=== PATIENT | female | born 1950 | race Caucasian/White ===

== ENCOUNTER 2018-09-22 21:08 | Inpatient (IN) ==
[2018-09-23] MEDS ORDERED: Naloxone 0.4 MG/ML INJ IVP PRN (03:40)
[2018-09-23] MEDS ORDERED: *HR* Dextrose 50 % in Water (Syg) 50 ML SYRINGE IVP PRN (03:43)
[2018-09-23] MEDS ORDERED: D5% in Water 1,000 ML IVC PRN (03:43)
[2018-09-23] MEDS ORDERED: Dextrose Gel 15 GM/37.5 ML TUBE PO PRN ×2 (03:43)
[2018-09-23] MEDS ORDERED: *HR* Heparin 5,000 UNIT/ML VIAL IVP PRN ×2 (03:44)
[2018-09-23] MEDS ORDERED: *HR* Heparin 5,000 UNIT/ML VIAL IVP ONE (03:44)
[2018-09-23] MEDS ORDERED: Heparin 25,000 UNIT/250 ML D5W 25,000 UNIT/250 ML IV.SOLN IVC SCH (03:45)
[2018-09-23 05:19] LABS: Hematocrit 34.5 % (35.3-44.9); Mean Corpuscular HGB Conc 31.9 g/dL (31.6-35.5); Mean Corpuscular Hemoglobin 27.5 pg (28.0-33.3); Mean Corpuscular Volume 86.3 fL (83.0-100.0); Mean Platelet Volume 11.3 fL (9.4-12.4); Platelet Count 241 K/mcL (140-400); Red Cell Distribution Width 13.3 % (11.5-14.5); White Blood Count 14.3 K/mcL (4.3-11.1)
[2018-09-23 05:41] LABS: Calcium 8.4 mg/dL (8.6-10.3); Magnesium 1.6 mg/dL (1.6-2.6); Phosphorous 4.1 mg/dL (2.7-4.5); Potassium 3.6 mEq/L (3.5-5.1)
[2018-09-23 05:45] LABS: Troponin I 0.11 ng/mL (< 0.04)
[2018-09-23] MEDS ORDERED: Insulin LISPRO 300 UNITS/3 ML VIAL SQ SCH (06:00)
--- NOTE | 2018-09-23 06:36 | Internal Med History&Physical ---
Date of Encounter: 09/23/18 Time of Encounter: 03:45 Internal Medicine - H&P: HPI Chief complaint: Acute hypoxic respiratory failure Admitted From: Emergency Dept History of present illness: Ms. Buck is a 68 year old female Patient presented to [facility] on 09/20 and was admitted for hyperglycemia and hypertension. She was treated, and admitted to the hospital for further management. She improved and was given insulin, IV fluids and her blood pressure was controlled with her home dose of atenolol. She was also found to have a UTI, cultures grew out MRSA. She was started on Septra DS for this. On the night of 09/22, a rapid response was called to her room as the patient was having difficulty breathing, oxygen sats were noted to be in the 70% range, and she was again hypertensive. Chest x-ray revealed edema, she was given IV lasix, labe tolol for blood pressure. Labs revealed elevated D-dimer, glucose and BNP. She was started on heparin drip, BiPAP, and the patient was transferred to [facility] for further management. Upon my evaluation, patient is resting comfortably in the hospital bed in no acute distress. She denies chest pain, abdominal pain , nausea, vomiting, diarrhea and constipation. She is wearing the BiPAP, and has had 1500cc of urine out thus far. She is a full code. Past Med Surg Social Fam HX - Past Medical History Medical history: diabetes, GERD, hyperlipidemia, hypertension Additional medical history: H.pylori, gastritits, dyspepsia, leg cramps, depression Psychiatric history: anxiety, depression, prior suicide attempt, previous psychiatric hospitalization - Past Surgical History Surgical History: cholecystectomy, hysterectomy Additional surgical history: Colonoscopy 2012 - Social History Smoking Status: Never smoker Smokeless Tobacco Status: No Alcohol use: none Drug use: none Internal Medicine - H&P: Meds Insulin Glargine,Hum.rec.anlog [Lantus Solostar] 15 unit SQ TID 11/28/14 [History] Lisinopril [Zestril] 20 mg PO DAILY #0 11/28/14 [History] Aspirin 81 mg PO DAILY 06/26/16 [History] Ferrous Sulfate [Iron] 325 mg PO DAILY 06/26/16 [History] Gabapentin [Neurontin] 300 mg PO TID 06/26/16 [History] Gemfibrozil [Lopid] 600 mg PO BID 06/26/16 [History] Paroxetine HCl [Paxil] 40 mg PO DAILY 06/26/16 [History] Trazodone HCl 100 mg PO HS 06/26/16 [History] Atenolol 100 mg PO DAILY 05/22/18 [History] Cholecalciferol (Vitamin D3) [Vitamin D] 5,000 unit PO DAILY 05/22/18 [History] glyBURIDE [GlyBURIDE] 5 mg PO DAILY 05/22/18 [History] risperiDONE [RisperDAL] 4 mg PO HS 05/22/18 [History] Meclizine [Antivert] 25 mg PO DAILY PRN 09/20/18 [History] Meloxicam [Mobic] 15 mg PO DAILY 09/20/18 [History] Omeprazole [PriLOSEC] 20 mg PO DAILY 09/20/18 [History] Allergy/AdvReac Type Severity Reaction Status Date / Time iodine Allergy Hives Verified 12/26/16 16:16 All Systems PM: A 10-system review of systems was performed and is negative for pertinent findings except as documented above in the HPI. - Constitutional Vitals: Temp Pulse Resp BP Pulse Ox 98.6 F 70 17 147/75 98 09/23/18 03:41 09/23/18 03:41 09/23/18 03:46 09/23/18 03:41 09/23/18 03:46 General appearance: Present: cooperative, A&O X 3, pleasant, no acute distress, answers questions appropriately Exam: - - Head Head exam: Present: normal inspection Additional comments: BiPAP mask applied - Eye Eye exam: Present: EOMI, normal appearance - Respiratory Respiratory exam: Present: rales. Absent: accessory muscle use, decreased breath sounds, CTAB, respiratory distress, rhonchi, wheezes - Cardiovascular Cardiovascular exam: Present: RRR. Absent: diastolic murmur, systolic murmur - GI/Abdominal GI/Abdominal exam: Present: normal bowel sounds, soft. Absent: tenderness - Extremities Exam Extremities exam: Present: pedal edema, warm, radial pulses palpable and symmetrical. Absent: calf tenderness, tenderness - Neurological Exam Neurological exam: Present: no focal deficits, strengths equal and symetr throughout. Absent: motor sensory deficit, facial droop, speech deficit - Skin Skin exam: Present: dry, normal color, warm Internal Med - H&P Results - Labs CBC & Chem 7: 09/23/18 05:08 09/23/18 05:08 Labs: Short CBC 09/23/18 Range/Units 05:08 WBC 14.3 H (4.3-11.1) K/mcL Hgb 11.0 L (11.5-15.4) g/dL Hct 34.5 L (35.3-44.9) % Plt Count 241 (140-400) K/mcL BMP 09/23/18 05:08 Sodium 135 L Potassium 3.6 Chloride 103 Carbon Dioxide 22 L BUN 21 Creatinine 1.53 H Glucose 259 H Calcium 8.4 L Cardiac Enzymes 09/23/18 Range/Units 05:08 Troponin I 0.11 H* (< 0.04) ng/mL - Assessment and Plan (1) Acute respiratory failure with hypoxia Current Visit: Yes Status: Acute Assessment and plan: Chest x-ray demonstrated findings consistent with CHF with interstitial edema and probable small effusion. Patient did receive 2 L of IV fluids in the emergency department prior to being admitted at [facility]. She has had good response to the IV Lasix. Patient also had elevated d-dimer, cannot rule out pulmonary embolism as VQ scan not available at [facility]. Patient now on BiPAP, tolerating well. Echocardiogram in the morning VQ scan in the morning Continue heparin drip Continue BiPAP Strict I's and O's Daily weights (2) Elevated d-dimer Current Visit: Yes Status: Acute Assessment and plan: Unclear etiology, patient became short of breath at [facility], and found to have elevated D-dimer. Started on heparin drip at [facility]. CTA not possible due to patient's allergy to iodine which is a component of the CT contrast. Continue heparin drip VQ scan in the morning. Lower extremity Doppler (3) Acute kidney injury Current Visit: Yes Status: Acute Assessment and plan: Elevated creatinine when initially presented to [facility] ER at 1.64. Did improve while inpatient to 1.25, however now increasing again to 1.53. Avoiding fluids in setting of pulmonary edema, Also received lasix at [facility] prior to arrival. Patient has had robust urine output. Continue to monitor Continue gentle diuresis Monitor urine output Daily weights (4) Hypertensive urgency Current Visit: Yes Status: Acute Assessment and plan: Improved after 10 mg of labetalol given at [facility]. Continue to monitor Hydralazine as needed (5) Elevated troponin Current Visit: Yes Status: Acute Assessment and plan: Troponin was undetectable at [facility], but upon arrival repeat troponin was 0.11. Patient denies chest pain. EKG was ordered, was sinus rhythm with no ischemic changes. She is on heparin drip Continue heparin drip Echocardiogram Continue to trend troponin (6) DM type 2 (diabetes mellitus, type 2) Current Visit: No Status: Acute Assessment and plan: Patient is an insulin dependent diabetic Monitor sugars ACHS Diabetic diet Low dose insulin sliding scale as needed Hold home meds. Qualifiers: Diabetes mellitus usp insulin use: with middle or intermediate school principal use Diabetes charo litus complication status: with hyperglycemia Qualified Code(s): E11.65 - Type 2 diabetes mellitus with hyperglycemia; Z79.4 - skilled nursing (current) use of insulin (7) Urinary tract infection Current Visit: No Status: Acute Assessment and plan: Patient was started on a treatment for UTI at [facility], Ro PERES. Grew out MRSA. Patient has worsening renal function, will switch to Vanco IV, renally dosed. Start Vanco, pharmacy to dose. Qualifiers: Urinary tract infection type: acute cystitis Hematuria presence: without hematuria Qualified Code(s): N30.00 - Acute cystitis without hematuria (8) DVT prophylaxis Current Visit: Yes Status: Acute Assessment and plan: Continue heparin drip - Time Spent With Patient Total time spent is greater than 50% in coordination of care (as documented) at patient's floor/unit and/or counseling patient: Greater than 35 minutes
[2018-09-23] MEDS: Insulin LISPRO 300 UNITS/3 ML VIAL SQ SCH ×4 (08:20→20:32)
[2018-09-23] MEDS ORDERED: Furosemide 20 MG/2 ML VIAL IVP SCH (09:00)
[2018-09-23] MEDS ORDERED: Aminoglycoside Consult 1 EACH MC ONE (09:50)
--- NOTE | 2018-09-23 10:26 | Cardiology Consult Note ---
<Christine Castro - Last Filed: 09/23/18 10:22> Date of Encounter: 09/23/18 Time of Encounter: 09:45 Assessment and Plan (1) CHF (congestive heart failure) Current Visit: Yes Status: Acute Per cardiology: -Reported sudden onset of shortness of breath, respiratory failure. -Was given IV lasix, placed on bipap and transferred to [facility]. -Chest x-ray with CHF, interstitial edema and probable small effusions. -Today, patient reports symptoms improved, however still on O2 at 5LPM per nasal cannula, not normally on O2 during the day at home. -On IV lasix, currently net negative ~2.5L. -TTE pending. -TTE 08/2017 with LVEF 60%, mild concentric LVH, mild diastolic dysfunction, mild AR, small pericardial effusion no evidence of tamponade, small PFO with left to right shunt, no segmental wall motion abnormalities noted. -Agree with IV diuresis. Monitor renal function closely, now with EFRAIN. Consider nephrology consult. -Strict i/os, fluid restriction, daily weights. Qualifiers: Heart failure type: unspecified Heart failure chronicity: acute Qualified Code(s): I50.9 - Heart failure, unspecified (2) Elevated troponin Current Visit: Yes Status: Acute Per cardiology: -Troponin negative then 0.11 in the setting of HTN, CHF, EFRAIN, UTI. -Denies chest pain. -ECG with SR. -TTE pending. -ON heparin drip. -NSTEMI type I vs II. Continue to trend troponins. -Agree with TTE. -Will add asa, statin, BB. -Will continue to monitor. (3) Acute kidney injury Current Visit: Yes Status: Acute Per cardiology: -EFRAIN noted. -Continue to monitor closely with diuresis. -Management per primary service. Can consider nephrology consult. Discussion w patient/family: The assessment and plan as outlined above was discussed with the patient who expressed understanding and agreement. All questions were answered. Thank you for involving us in the care of your patient. Please call with any questions. Discussed and reviewed with . History of Present Illness Consult date: 09/23/18 Requesting physician: Cindy Connor Consult reason: elevated troponin Chief complaint: high blood sugar, elevated BP History of present illness: Ms. Buck is a 68 year old female with a relevant past medical history of DM, HTN, HLD, depression, anxiety, schizophrenia, diabetic neuropathy, COPD, anemia, who presented to [facility] with complaints of high blood sugar and elevated BPs. Pateint states sugar was 500s. And reports BP was 190s. Patient states she was then admitted to floor. Patient then complained of difficulty breathing and rapid response was called. SpO2 reportedly 70%. Patient was placed on bipap. Chest x-ray was preformed and showed CHF. Patient was given Lasix and was then transferred to [facility]. Today, patient states her breathing is improved. Still on O2 at 5LPM per nasal cannula. States she does not normally wear O2 during the day, however wears at night at 2LPM. Patient denies chest pain. Past Med Surg Social Fam HX - Past Medical History Attestation: Yes The following information was validated with the patient. Source: patient, old records reviewed Medical history: diabetes, GERD, hyperlipidemia, hypertension Additional medical history: H.pylori, gastritits, dyspepsia, leg cramps, depression Psychiatric history: anxiety, depression, prior suicide attempt, previous psychiatric hospitalization - Past Surgical History Surgical History: cholecystectomy, hysterectomy Additional surgical history: Colonoscopy 2012 - Social History Smoking Status: Never smoker Smokeless Tobacco Status: No Alcohol use: none Drug use: none Medications and Allergies Insulin Glargine,Hum.rec.anlog [Lantus Solostar] 20 unit SQ HS 11/28/14 [History] Lisinopril [Zestril] 20 mg PO DAILY #0 11/28/14 [History] Ferrous Sulfate [Iron] 325 mg PO DAILY 06/26/16 [History] Gabapentin [Neurontin] 300 mg PO TID 06/26/16 [History] Gemfibrozil [Lopid] 600 mg PO BID 06/26/16 [History] Paroxetine HCl [Paxil] 40 mg PO DAILY 06/26/16 [History] Atenolol 100 mg PO DAILY 05/22/18 [History] Cholecalciferol (Vitamin D3) [Vitamin D] 5,000 unit PO DAILY 05/22/18 [History] glyBURIDE [GlyBURIDE] 5 mg PO DAILY 05/22/18 [History] risperiDONE [RisperDAL] 4 mg PO HS 05/22/18 [History] Meclizine [Antivert] 25 mg PO DAILY PRN 09/20/18 [History] Meloxicam [Mobic] 15 mg PO DAILY 09/20/18 [History] Omeprazole [PriLOSEC] 20 mg PO DAILY 09/20/18 [History] Aspirin Enteric Coated [Aspirin EC] 81 mg PO DAILY 09/23/18 [History] Sucralfate [Carafate] 1 gm PO QIDAC 09/23/18 [History] Trazodone HCl 100 mg PO HS 09/23/18 [History] Allergy/AdvReac Type Severity Reaction Status Date / Time iodine Allergy Hives Verified 12/26/16 16:16 All Systems Review: The remainder of the systems were reviewed and are negative - Cardiovascular Cardiovascular: as per HPI, dyspnea at rest, dyspnea on exertion Physical Examination Vital Signs, Last 4 Hours Temp Pulse Resp BP Pulse Ox 09/23/18 07:31 97.8 F 71 20 155/82 98 General: Conversant, No Apparent Distress HEENT: Atraumatic, Normocephaly, Mucus Membranes Moist Neck: No JVD, Normal carotid pulses Cardiac: Reg Rate and Rhythm, Normal S1 and S2, No Murmur Lungs: Other (Lung sounds diminished throughout. ) Neuro: Alert and responsive, No focal deficits noted Abdomen: Soft, Non-Tender Skin: No rashes noted on visualized skin Musculoskeletal: No Chest Wall Tenderness Extremities: No Clubbing, No Cyanosis, No Edema, Normal Pulses Results 09/23/18 05:08 09/23/18 05:08 Lab Results Active Medications Dextrose/Water (Dextrose 50% (Syg)) 25 ml IVP AD PRN PRN Reason: Hypoglycemia Stop: 03/25/19 03:44 Furosemide (Lasix) 20 mg IVP DAILY SLIM Stop: 03/25/19 09:01 Last Admin: 09/23/18 08:20 Dose: 20 mg Documented by: Glucagon (Glucagen) 1 mg IM ONCE PRN PRN Reason: Hypoglycemia Stop: 03/25/19 03:44 Glucose (Gluctose) 15 gm PO ONCE PRN PRN Reason: Hypoglycemia Stop: 03/25/19 03:44 Glucose (Gluctose) 30 gm PO ONCE PRN PRN Reason: Hypoglycemia Stop: 03/25/19 03:44 Heparin Sodium (Porcine) (Heparin) 6,300 unit 70 unit/kg (6300 unit) IVP Q6HR PRN PRN Reason: SEE COMMENTS Stop: 03/25/19 03:45 Heparin Sodium (Porcine) (Heparin) 3,200 unit 35 unit/kg (3200 unit) IVP Q6H PRN PRN Reason: SEE COMMENTS Stop: 03/25/19 03:45 Hydralazine HCl (Hydralazine) 10 mg IVP Q6HR PRN PRN Reason: Hypertension Stop: 03/25/19 06:41 Dextrose (Dextrose 5%) 1,000 mls @ 100 mls/hr IVC .Q10H PRN PRN Reason: HYPOGLYCEMIA Stop: 03/25/19 03:44 Heparin Sodium/Dextrose (Heparin 25,000 Unit/250 Ml D5w) 25,000 unit in 250 mls @ 12.642 mls/hr IVC .[id number] SLIM; Protocol Stop: 03/25/19 03:46 Last Titration: 09/23/18 05:37 Dose: 10.29 unit/kg/hr, 9.3 mls/hr Documented by: Insulin Detemir (Levemir) 10 unit SQ HS SLIM Stop: 03/25/19 21:01 Insulin Human Lispro (Humalog) 0 units SQ HS [facility]; Protocol Stop: 03/25/19 21:01 Insulin Human Lispro (Humalog) 0 units SQ TIDAC [facility]; Protocol Stop: 03/25/19 07:31 Last Admin: 09/23/18 08:20 Dose: 4 units Documented by: Naloxone HCl (Narcan) 0.4 mg IVP Q2MPRN PRN PRN Reason: SEE COMMENTS Stop: 03/25/19 03:41 Laboratory Tests 11/30/16 09/20/18 09/22/18 05:21 14:48 19:37 WBC Creatinine 0.82 1.64 H 1.25 H Troponin I < 0.03 09/23/18 09/23/18 05:08 05:08 WBC 14.3 H Creatinine 1.53 H Troponin I 0.11 H* - Imaging and Cardiology Chest Xray: report reviewed Echo: pending, report reviewed - EKG Interpretation EKG results cardiology: personally reviewed (ECG with SR, HR 66.), other (Telemetry reviewed with average HR previous 12 hours noted to be 68, SR. PVCs, PACs noted.) Consult Discharge Plan - Plan Referrals: Castro Edouard, [Primary Care Provider] - 10/03/18 10:15 am (Appointment will be with Dr. Olvera) <Faye Rodriguez - Last Filed: 09/23/18 14:59> Date of Encounter: 09/23/18 - Attending Attestation I have personally performed a face to face evaluation on this patient. I have reviewed and agree with the care plan. History and Exam by me shows: 68-year-old female with multiple cardiac risk factors presents hypovolemia, shortness of breath with orthopnea previously known preserved ejection fraction and 2018. Current gentle diuresis has improved symptoms denies any further orthopnea. Ischemic workup pending echocardiogram and findings. Patient also noted to have UTI. Invasive versus noninvasive pending echo findings Assessment and Plan Discussion w patient/family: The assessment and plan as outlined above was discussed with the patient and/or family members who expressed understanding and agreement. All questions were answered. Thank you for involving us in the care of your patient. Please call with any questions. History of Present Illness History of present illness: Ms. Buck is a 68 year old female All Systems Review: The remainder of the systems were reviewed and are negative Physical Examination Vital Signs, Last 4 Hours Temp Pulse Resp BP 09/23/18 12:00 98.4 F 66 18 143/81 Results 09/23/18 05:08 09/23/18 05:08 Lab Results 09/23/18 09/23/18 09/23/18 05:08 05:08 12:08 WBC 14.3 H Hgb 11.0 L Hct 34.5 L Plt Count 241 Sodium 135 L Potassium 3.6 Chloride 103 Carbon Dioxide 22 L BUN 21 Creatinine 1.53 H Glucose 259 H Calcium 8.4 L Magnesium 1.6 Troponin I 0.11 H* 0.06 H*
--- NOTE | 2018-09-23 10:58 | Infectious Disease Consult ---
Infectious Disease-Consult - Encounter Date/Time Date of Encounter: 09/23/18 Time of Encounter: 11:35 - Data of Consult Patient: new to practice Reason for consult: MRSA in urine. Recommendation for treatment?? Consult date: 09/23/18 Requesting Physician: Cindy Connor Primary Care Provider: Castro Edouard DO - HPI HPI: Ms. Buck is a 68-year-old female with past medical history of GERD, hyperlipidemia, hypertension, H. pylori gastritis, depression, and anxiety. The patient was admitted to the hospital 09/20/18 for hyperglycemia and hypertension. We are consulted 09/23/18 for further workup and treatment recommendations for MRSA in the urine. Briefly, the patient female with past medical history as stated above. The patient presented to [facility] emergency department with complaints of hyperglycemia and hypertension. Upon arrival, patient was afebrile. She was hypertensive, but was otherwise hemodynamically stable. She was noted to have an acute kidney injury with a serum creatinine 1.64. LFTs were normal. Blood glucose was elevated at 551. The patient was given IV fluids and IV insulin and was admitted at [facility] for further evaluation and treatment. On admission, the patient was noted to be stable. She developed acute sudden onset of respiratory distress and altered mental status yesterday with associated hypoxia. She had a chest x-ray showed findings consistent with CHF. She developed leukocytosis. Urine culture obtained in the emergency department came back positive for MRSA. She was started on oral Bactrim. She was transferred here for further evaluation and treatment. Transfer here, the patient's white blood cell count is 14,000 with neutrophilic predominance. Her creatinine remains elevated at 1.53. She has a positive troponin 0.11. Cardiology has been consulted. She is scheduled to undergo a VQ scan, transthoracic echo, venous Doppler study of the bilateral lower extremities. She received 1 dose of IV vancomycin. We have been asked to evaluate and make further recommendations. During my exam today, the patient endorses a history as stated above. She states she felt fatigued and generally weak prior to admission at [facility]. She denies fevers, chills, rigors. Denies headache or neck pain. Denies chest pain, shortness of breath, or cough until yesterday when she developed sudden onset shortness of breath and a nonproductive cough. Denies pain in her chest. Denies nausea, vomiting, diarrhea, or constipation. Denies abdominal pain or urinary complaints including dysuria, frequency, or hematuria. Denies oral thrush. States her appetite has been okay. States she was diagnosed with diabetes 20 years ago and takes oral anti-hyperglycemics and insulin at home. States up until a couple of weeks ago her blood sugars were relatively well controlled. The patient lives at home alone. She does not work outside the home. She denies tobacco, alcohol, or illicit drug use. Denies chronic infectious diseases. Denies recent travel outside the [facility]. Denies any pet or animal exposures. - ROS Review of Systems: All systems reviewed and no additional remarkable complaints except as stated. - Results CBC & Chem 7: 09/25/18 09:17 09/26/18 02:00 - Exam Vitals: Temp Pulse Resp BP Pulse Ox 97.8 F 71 20 155/82 98 09/23/18 07:31 09/23/18 07:31 09/23/18 07:31 09/23/18 07:31 09/23/18 07:31 Exam: Head: Atraumatic, normal inspection, normocephalic. Eye: EOMI, PERRLA, no scleral icterus noted. ENT: Mucous membranes moist. No odontogenic infection noted. Neck: Normal inspection, no meningismus. Respiratory: Clear to auscultation. No rales, respiratory distress, rhonchi, or wheezes noted. Cardiovascular: Regular rate and rhythm, S1 and S2 audible. No murmurs, rubs, or gallops. GI: Soft, nondistended, normal bowel sounds. Diaz catheter noted to be draining clear yellow urine. Extremities:No joint swelling or tenderness noted. Trace nonpitting edema noted. Back: Normal inspection. No vertebral tenderness noted. Neurological: Alert, oriented 3, no focal deficits. Psychiatric: normal affect, normal mood. Skin: Dry, intact, warm. Normal color. No rashes. Insulin Glargine,Hum.rec.anlog [Lantus Solostar] 20 unit SQ HS 11/28/14 [History] Lisinopril [Zestril] 20 mg PO DAILY #0 11/28/14 [History] Ferrous Sulfate [Iron] 325 mg PO DAILY 06/26/16 [History] Gabapentin [Neurontin] 300 mg PO TID 06/26/16 [History] Gemfibrozil [Lopid] 600 mg PO BID 06/26/16 [History] Paroxetine HCl [Paxil] 40 mg PO DAILY 06/26/16 [History] Atenolol 100 mg PO DAILY 05/22/18 [History] Cholecalciferol (Vitamin D3) [Vitamin D] 5,000 unit PO DAILY 05/22/18 [History] glyBURIDE [GlyBURIDE] 5 mg PO DAILY 05/22/18 [History] risperiDONE [RisperDAL] 4 mg PO HS 05/22/18 [History] Meclizine [Antivert] 25 mg PO DAILY PRN 09/20/18 [History] Meloxicam [Mobic] 15 mg PO DAILY 09/20/18 [History] Omeprazole [PriLOSEC] 20 mg PO DAILY 09/20/18 [History] Aspirin Enteric Coated [Aspirin EC] 81 mg PO DAILY 09/23/18 [History] Sucralfate [Carafate] 1 gm PO QIDAC 09/23/18 [History] Trazodone HCl 100 mg PO HS 09/23/18 [History] Allergy/AdvReac Type Severity Reaction Status Date / Time iodine Allergy Hives Verified 12/26/16 16:16 - Assessment and Plan (1) Urinary tract infection Current Visit: Yes Status: Acute Asymptomatic bacteriuria. Causative organism: MRSA. Qualifiers: Urinary tract infection type: acute cystitis Hematuria presence: without hematuria Qualified Code(s): N30.00 - Acute cystitis without hematuria SNOMED Code(s): 00347836 (2) Acute kidney injury Current Visit: Yes Status: Acute Etiology unclear. Serum creatinine remains elevated. Consider nephrology to evaluate. Further workup and management per the primary team. SNOMED Code(s): 00007996, 90975469 (3) Acute respiratory failure with hypoxia Current Visit: Yes Status: Acute Likely secondary to CHF. VQ scan scheduled for evaluation of possible PE. Management per the primary team. SNOMED Code(s): 13407254, 548952607 (4) CHF (congestive heart failure) Current Visit: Yes Status: Acute Noted on CXR. Likely secondary to IVF resuscitation. Management per the primary team. Qualifiers: Heart failure type: diastolic Heart failure chronicity: acute Qualified Code(s): I50.31 - Acute diastolic (congestive) heart failure SNOMED Code(s): 26242055 (5) Hyperglycemia Current Visit: No Status: Acute Likely secondary to uncontrolled DM. Improved. Management per the primary team. SNOMED Code(s): 83530689 (6) Elevated troponin Current Visit: Yes Status: Resolved Cardiology consulted and following. SNOMED Code(s): 019331290, 155158944, 580056411 (7) Hypertensive urgency Current Visit: Yes Status: Acute Management per the primary team. SNOMED Code(s): 939450577 (8) Anxiety and depression Current Visit: No Status: Chronic Home medications. SNOMED Code(s): 687538091 (9) DM type 2 (diabetes mellitus, type 2) Current Visit: Yes Status: Chronic Qualifiers: Diabetes mellitus medical office specialist insulin use: with long-term use Diabetes mellitus complication status: with hyperglycemia Qualified Code(s): E11.65 - Type 2 diabetes mellitus with hyperglycemia; Z79.4 - [facility] (current) use of insulin SNOMED Code(s): 33198873 - Recommendations Recommendations: MRSA in the urine likely not contributing to the patient's clinical picture. Will plan to treat with Bactrim DS 1 tab PO BID. Will start tomorrow since the patient received IV Vanc overnight. Duration of treatment depends on the clinical picture, but likely a total of 5 days. Will plan to treat through 09/26/18. Contact precautions per hospital policy. Past Med Surg Social Fam HX - Past Medical History Medical history: diabetes, GERD, hyperlipidemia, hypertension Additional medical history: H.pylori, gastritits, dyspepsia, leg cramps, depression Psychiatric history: anxiety, depression, prior suicide attempt, previous psychiatric hospitalization - Past Surgical History Surgical History: cholecystectomy, hysterectomy Additional surgical history: Colonoscopy 2012 - Social History Smoking Status: Never smoker Smokeless Tobacco Status: No Alcohol use: none Drug use: none Consult Discharge Plan - Plan Referrals: Castro Edouard DO [Primary Care Provider] - (Patient is going to [facility] no PCP appointment needed) - Attending Attestation I have personally performed a face to face evaluation on this patient. I have reviewed and agree with the care plan. History and Exam by me shows: Assessment and Plan: Urine tract infection versus asymptomatic bacteriuria with MRSA Acute Kidney injury Acute respiratory failure REcommendations: MRSA in the urine likely not contributing to the patient's clinical picture. Will plan to treat with Bactrim DS 1 tab PO BID. Will start tomorrow since the patient received IV Vanc overnight. Duration of treatment depends on the clinical picture, but likely a total of 5 days. Will plan to treat through 09/26/18. Contact precautions per hospital policy.
[2018-09-23] MEDS: Aspirin Enteric Coated 81 MG Tablet PO SCH (12:27)
[2018-09-23 16:10] LABS: Hemoglobin 10.7 g/dL (11.5-15.4)
[2018-09-23] MEDS: Sucralfate 1 GM TABLET PO SCH ×2 (17:12→20:40)
--- NOTE | 2018-09-23 18:40 | Event Note ---
Date of Encounter: 09/23/18 Time of Encounter: 10:00 History and physical reviewed. Patient was admitted for acute hypoxic respiratory failure 2/2 flash pulmonary edema likely in the sitting of hypertension emergency. She was placed on IV diuresis here and at outside facility. She had made only here I/O -3l. Now on RA so I DC lasix given her EFRAIN and will diures her on PRN basis. Her troponin peaked at 0.11 likely in the setting of respiratory failure and hypertension. Cardiology was consulted and I believe the plan is to proceed with stress test tomorrow. Patient was on heparin gtt for high D-dimer and suspicion of PE. V/Q done and was with low probability. US doppler of LE is pending. Patient noted small amount of bleed on her underwear which was most likely vaginal. H/H without acute drop. Heparin DC as she is asymptomatic form heart stand point. will check another H/H at 8 pm and we can transfuse on PRN basis and get US pelvis and Metal Machinist depends on her course. For MRSA found in the urine, Vanc was DC and ID was consulted and she was placed on Bactrim. Overall, patient is doing better compared to admission. Sign out sara l be given to the night team to follow on her H/H.
[2018-09-23 19:44] LABS: Basophils # 0.1 K/mcL (0.0-0.2); Basophils % 0.7 %; Eosinophils # 0.5 K/mcL (0.0-0.6); Eosinophils % 4.5 %; Hematocrit 32.5 % (35.3-44.9); Hemoglobin 10.5 g/dL (11.5-15.4); Immature Granulocytes % 0.5 % (0-4); Lymphocytes # 2.1 K/mcL (0.6-4.6); Lymphocytes % 20.5 %; Mean Corpuscular HGB Conc 32.3 g/dL (31.6-35.5); Mean Corpuscular Hemoglobin 26.9 pg (28.0-33.3); Mean Corpuscular Volume 83.1 fL (83.0-100.0); Mean Platelet Volume 11.7 fL (9.4-12.4); Monocytes # 0.8 K/mcL (0.0-1.3); Monocytes % 7.3 %; Platelet Count 222 K/mcL (140-400); Red Blood Count 3.91 M/mcL (3.82-4.97); Red Cell Distribution Width 13.2 % (11.5-14.5); Segmented Neutrophils % 66.5 %; White Blood Count 10.5 K/mcL (4.3-11.1)
[2018-09-23] MEDS: traZODone 50 MG TABLET PO SCH (20:39)
[2018-09-23] MEDS: risperiDONE 1 MG TABLET PO SCH (20:40)
[2018-09-23] MEDS: Insulin DETEMIR 100 UNIT/ML X5UNITS SQ SCH (20:43)
[2018-09-23] MEDS ORDERED: Sulfamethoxazole/Trimeth DS 1 EACH TABLET PO SCH (21:00)
[2018-09-23] MEDS ORDERED: Gabapentin 300 MG CAPSULE PO ONE (22:33)
[2018-09-23] MEDS: *HR* Heparin 5,000 UNIT/ML VIAL SQ SCH (23:37)
[2018-09-24 02:20] LABS: Hematocrit 33.3 % (35.3-44.9); Hemoglobin 10.7 g/dL (11.5-15.4); Mean Corpuscular HGB Conc 32.1 g/dL (31.6-35.5); Mean Corpuscular Hemoglobin 27.3 pg (28.0-33.3); Mean Corpuscular Volume 84.9 fL (83.0-100.0); Mean Platelet Volume 11.7 fL (9.4-12.4); Platelet Count 226 K/mcL (140-400); Red Blood Count 3.92 M/mcL (3.82-4.97); Red Cell Distribution Width 13.3 % (11.5-14.5)
[2018-09-24 02:21] LABS: VBG HCO3 28 mEq/L (21-27); VBG PCO2 36 mmHg (41-51); VBG PH 7.51 pH Units (7.32-7.42); VBG PO2 208 mmHg (25-50)
[2018-09-24 02:39] LABS: Calcium 8.7 mg/dL (8.6-10.3); Potassium 3.5 mEq/L (3.5-5.1)
[2018-09-24] MEDS: *HR* Heparin 5,000 UNIT/ML VIAL SQ SCH ×3 (05:26→21:00)
[2018-09-24] MEDS ORDERED: Aspirin Enteric Coated 81 MG Tablet PO SCH (09:00)
[2018-09-24] MEDS: Sucralfate 1 GM TABLET PO SCH ×4 (09:21→21:00)
[2018-09-24] MEDS: Insulin LISPRO 300 UNITS/3 ML VIAL SQ SCH ×4 (09:22→20:55)
--- NOTE | 2018-09-24 10:06 | Cardiology Progress Note ---
Date of Encounter: 09/24/18 Time of Encounter: 10:04 Assessment and Plan (1) CHF (congestive heart failure) Current Visit: Yes Status: Acute Per cardiology: Reported sudden onset of shortness of breath, respiratory failure. CXR with CHF, interstitial edema and probable small effusions. Symptoms have improved, now on room air. Near euvolemic on exam. Was diuresed with IV Lasix, net negative ~4.2L. Lasix stopped d/t EFRAIN. TTE pending. TTE 08/2017 with LVEF 60%, mild cLVH, mild diastolic dysfunction, mild AR, small PFO with left to right shunt. Recommend Strict i/os, fluid restriction, daily weights. Qualifiers: Heart failure type: unspecified Heart failure chronicity: acute Qualified Code(s): I50.9 - Heart failure, unspecified (2) Elevated troponin Current Visit: Yes Status: Acute Per cardiology: Troponin negative then 0.11, 0.06 in the setting of HTN, CHF, EFRAIN, UTI. Suspect demand ischemia. Denies chest pain. ECG with SR. TTE pending. Initially on heparin drip stopped d/t vaginal blee ding. Continue ASA, Statin, BB. If EF remains preserved on TTE, will order nuclear stress test. Pt had VQ scan yesterday, will need to wait 48-72 hours. Discussion w patient/family: The assessment and plan as outlined above was discussed with the patient and/or family members who expressed understanding and agreement. All questions were answered. Thank you for involving us in the care of your patient. Please call with any questions. I will discuss all the above with Dr. Rodriguez and make changes as necessary. Subjective Principal diagnosis: CHF, elevated troponin Interval history: No acute complaints this AM. Objective Vital Signs, Last 4 Hours Temp Pulse Resp BP Pulse Ox 09/24/18 09:25 77 09/24/18 07:20 99.2 F 76 18 151/76 91 Vital Signs Temp Pulse Resp BP Pulse Ox 09/24/18 09:25 77 09/24/18 07:20 99.2 F 76 18 151/76 91 09/24/18 03:39 99.9 F H 84 16 151/75 93 09/23/18 22:47 99.2 F 84 16 145/67 94 09/23/18 20:50 77 09/23/18 20:35 77 164/95 09/23/18 19:08 98.3 F 75 20 178/86 94 09/23/18 16:50 98.6 F 70 18 93 09/23/18 12:00 98.4 F 66 18 143/81 Intake and Output 09/23/18 09/24/18 09/24/18 23:59 07:59 15:59 Intake Total 360 / 800 0 / 0 Output Total 1100 / 4550 500 / 500 Balance -740 / -3750 -500 / -500 0 / -500 Intake: Oral 360 / 600 0 / 0 Output: Urine 1100 / 1100 500 / 500 Other: Meal Dinner Breakfast Percent of Meal Consumed 100% 0% Blood Glucose* 167 118 General: Conversant, No Apparent Distress HEENT: Atraumatic, Normocephaly, Mucus Membranes Moist Neck: Normal carotid pulses Cardiac: Reg Rate and Rhythm, Normal S1 and S2, No Murmur Lungs: Other (diminished) Neuro: Alert and responsive, No focal deficits noted Abdomen: Soft, Non-Tender Skin: No rashes noted on visualized skin Musculoskeletal: No Chest Wall Tenderness Extremities: Other (mild BLE edema) Results 09/24/18 01:57 09/24/18 01:57 Lab Results 09/23/18 09/23/18 09/23/18 12:08 15:57 19:28 WBC 10.5 Hgb 10.7 L 10.5 L Hct 33.0 L 32.5 L Plt Count 222 Sodium Potassium Chloride Carbon Dioxide BUN Creatinine Glucose Calcium Troponin I 0.06 H* 09/24/18 09/24/18 01:57 01:57 WBC 11.0 Hgb 10.7 L Hct 33.3 L Plt Count 226 Sodium 136 Potassium 3.5 Chloride 102 Carbon Dioxide 25 BUN 25 H Creatinine 1.63 H Glucose 188 H Calcium 8.7 Troponin I Short CBC 09/24/18 09/23/18 09/23/18 Range/Units 01:57 19:28 15:57 WBC 11.0 10.5 (4.3-11.1) K/mcL Hgb 10.7 L 10.5 L 10.7 L (11.5-15.4) g/dL Hct 33.3 L 32.5 L 33.0 L (35.3-44.9) % Plt Count 226 222 (140-400) K/mcL Neutrophils # 7.0 (1.6-8.9) K/mcL BMP 09/24/18 Range/Units 01:57 Sodium 136 (136-145) mEq/L Potassium 3.5 (3.5-5.1) mEq/L Chloride 102 (98-107) mEq/L Carbon Dioxide 25 (23-29) mEq/L BUN 25 H (8-23) mg/dL Creatinine 1.63 H (0.60-1.20) mg/dL Glucose 188 H (70-105) mg/dL Calcium 8.7 (8.6-10.3) mg/dL Cardiac Enzymes 09/23/18 Range/Units 12:08 Troponin I 0.06 H* (< 0.04) ng/mL Impressions Pulmonary Perfusion Imaging 09/23/18 10:45 IMPRESSION: 1.Low probability for pulmonary embolus. D/ / Thomas Guzmán MD / Thomas Guzmán MD Interpreting Provider: Thomas Guzmán MD Active Medications Aspirin (Aspirin Ec) 81 mg PO DAILY [facility] Stop: 03/25/19 10:50 Last Admin: 09/23/18 12:27 Dose: 81 mg Documented by: Carvedilol (Coreg) 3.125 mg PO BIDWM [facility]; Protocol Stop: 03/25/19 17:01 Last Admin: 09/23/18 17:12 Dose: 3.125 mg Documented by: Dextrose/Water (Dextrose 50% (Syg)) 25 ml IVP AD PRN PRN Reason: Hypoglycemia Stop: 03/25/19 03:44 Ferrous Sulfate (Ferrous Sulfate) 325 mg PO DAILY [facility] Stop: 03/26/19 09:01 Glucagon (Glucagen) 1 mg IM ONCE PRN PRN Reason: Hypoglycemia Stop: 03/25/19 03:44 Glucose (Gluctose) 15 gm PO ONCE PRN PRN Reason: Hypoglycemia Stop: 03/25/19 03:44 Glucose (Gluctose) 30 gm PO ONCE PRN PRN Reason: Hypoglycemia Stop: 03/25/19 03:44 Heparin Sodium (Porcine) (Heparin) 5,000 unit SQ Q8HCO [facility] Stop: 03/25/19 22:46 Last Admin: 09/24/18 05:26 Dose: 5,000 unit Documented by: Hydralazine HCl (Hydralazine) 10 mg IVP Q6HR PRN PRN Reason: Hypertension Stop: 03/25/19 06:41 Last Admin: 09/23/18 20:44 Dose: 10 mg Documented by: Dextrose (Dextrose 5%) 1,000 mls @ 100 mls/hr IVC .Q10H PRN PRN Reason: HYPOGLYCEMIA Stop: 03/25/19 03:44 Insulin Detemir (Levemir) 10 unit SQ [facility] Stop: 03/25/19 21:01 Last Admin: 09/23/18 20:43 Dose: 10 unit Documented by: Insulin Human Lispro (Humalog) 0 units SQ [facility]; Protocol Stop: 03/25/19 21:01 Last Admin: 09/23/18 20:32 Dose: Not Given Documented by: Insulin Human Lispro (Humalog) 0 units SQ TIDAC [facility]; Protocol Stop: 03/25/19 07:31 Last Admin: 09/24/18 09:22 Dose: Not Given Documented by: Naloxone HCl (Narcan) 0.4 mg IVP Q2MPRN PRN PRN Reason: SEE COMMENTS Stop: 03/25/19 03:41 Omeprazole (Prilosec) 20 mg PO DAILY [facility]; Protocol Stop: 03/26/19 09:01 Paroxetine HCl (Paxil) 40 mg PO DAILY [facility] Stop: 03/26/19 09:01 Risperidone (Risperdal) 4 mg PO [facility] Stop: 03/25/19 21:01 Last Admin: 09/23/18 20:40 Dose: 4 mg Documented by: Sucralfate (Carafate) 1 gm PO QIDAC [facility] Stop: 03/25/19 16:31 Last Admin: 09/24/18 09:21 Dose: Not Given Documented by: Trazodone HCl (Trazodone) 100 mg PO [facility] Stop: 03/25/19 21:01 Last Admin: 09/23/18 20:39 Dose: 100 mg Documented by: Trimethoprim/Sulfamethoxazole (Bactrim Ss) 1 tab PO BID [facility] Stop: 09/26/18 23:59 Vitamin D (Vitamin D) 1,000 unit PO DAILY [facility] Stop: 03/26/19 09:01 - Imaging and Cardiology Echo: pending - EKG Interpretation EKG results cardiology: other (12 hr tele AVG HR 77, SR, no signficant pauses or arrhythmias) Consult Discharge Plan - Plan Referrals: Castro Edouard, [Primary Care Provider] - 10/03/18 10:15 am (Appointment will be with Dr. Olvera)
[2018-09-24] MEDS: Cholecalciferol (D-3) 1,000 UNIT (25MCG) TABLET PO SCH (11:04)
[2018-09-24] MEDS: Sulfamethoxazole/Trimeth SS 1 TAB PO SCH ×2 (11:05→21:00)
[2018-09-24] MEDS: Aspirin Enteric Coated 81 MG Tablet PO SCH (11:05)
--- NOTE | 2018-09-24 12:25 | Internal Med Progress Note ---
Hospitalist Progress Note - Encounter Date of Encounter: 09/24/18 Time of Encounter: 10:00 - Subjective Interval History: No major events overnight. Patient was seen this a.m. He denied fever, chills or night sweats. sHe has no nausea, vomiting or abdominal pain. Patient denied chest pain, shortness of breath or palpitation. - Exam Vitals: Temp Pulse Resp BP Pulse Ox 99.7 F H 75 18 179/83 95 09/24/18 11:34 09/24/18 11:34 09/24/18 11:34 09/24/18 11:34 09/24/18 11:34 Exam: -General: Patient is alert, oriented 3. No distress Head: Atraumatic, normal inspection, normocephalic. Eye: EOMI, PERRLA, no scleral icterus noted. ENT: Mucous membranes moist. No odontogenic infection noted. Neck: Normal inspection, no meningismus. Respiratory: No respiratory distress, rhonchi, or wheezes noted. Cardiovascular: Regular rate and regular rhythm, S1 and S2 audible. No murmurs, rubs, or gallops. GI: Soft, nondistended, normal bowel sounds. Extremities:No joint swelling, pedal edema, or tenderness noted. Neurological: Alert, oriented 3, no focal deficits. Psychiatric: normal affect, normal mood. Skin: Dry, intact, warm. Normal color. No rashes. - Assessment and Plan (1) Urinary tract infection Current Visit: Yes Status: Acute (2) DM type 2 (diabetes mellitus, type 2) Current Visit: Yes Status: Chronic (3) Acute respiratory failure with hypoxia Current Visit: Yes Status: Acute (4) Elevated d-dimer Current Visit: Yes Status: Resolved (5) Acute kidney injury Current Visit: Yes Status: Acute (6) Hypertensive urgency Current Visit: Yes Status: Acute (7) Elevated troponin Current Visit: Yes Status: Resolved (8) DVT prophylaxis Current Visit: Yes Status: Acute (9) Hypertension Current Visit: No Status: Chronic - Summary of Assessment and Plan Summary of Assessment and Plan: 68-year-old female with history of DM, GERD, depression who was sent from outside facility due to respiratory distress. Patient was managed here for accelerated hypertension and hyperglycemia. Rapid response code was called due to respiratory distress and patient was found to be in pulmonary edema. She was sent to our facility for further management.: NSTEMI: - Likely Type II event 2/2 respiratory distress and hypertensive emergency, however cannot rule out type I event. Troponin peaked to 0.11 - Cardiology is consulted, they will plan for stress test given normal EF in few days given that she received nuclear material with her V/Q mismatch yesterday. - was on heparin gtt which I stopped 2/2 suspicious vaginal bleed. - Continue aspirin, Lipitor, beta blockers EFRAIN: - likelt from over diuresis. - I/O -5l, lasix is on hold as the patient looks euvolemic. - ordered BMP for tomorrow, nephrology is consulted. Acute hypoxic respiratory failure: resolved - 2/2 flash pulmonary edema vs decompensated HF likely due over hydrating and hypertensive emergency - Chest x-ray is consistent with flash pulmonary edema as per my read. - Patient was diuresed with Lasix 80 mg over there and 20 in our facility. - She is on room air today patient is afebrile, has no leukocytosis. - ECHO with EF 60%, left ventricular diastolic dysfunction. UTI: - UCx grew MRSA - ID is consulted, patient is started on Bactrim - Patient is afebrile, hemodynamically stable. She has no leukocytosis Elevated d-dimer: - her V/Q mismatch and venous doppler are negative. - Heparin gtt stopped. HTN: - Continue coreg and hydralazine PRN. Hold lisinopri. - May increase Coreg dose or add Norvasc depending on her blood pressure trends in the hospital. Vaginal bleed: - Was seen on her underwear while on heparin gtt. - Hg remained stable. - will check Vaginal US today. Diet: cardiac DVT prophylaxis: SC heparin - Time Spent with Patient Total time spent is greater than 50% in coordination of care (as documented) at patient's floor/unit and/or counseling patient: Plan of Care Discussed with: patient Internal Medicine: Result - Labs CBC & Chem 7: 09/24/18 01:57 09/24/18 01:57 Labs: Short CBC 09/23/18 09/23/18 09/24/18 Range/Units 15:57 19:28 01:57 WBC 10.5 11.0 (4.3-11.1) K/mcL Hgb 10.7 L 10.5 L 10.7 L (11.5-15.4) g/dL Hct 33.0 L 32.5 L 33.3 L (35.3-44.9) % Plt Count 222 226 (140-400) K/mcL Neutrophils # 7.0 (1.6-8.9) K/mcL BMP 09/24/18 01:57 Sodium 136 Potassium 3.5 Chloride 102 Carbon Dioxide 25 BUN 25 H Creatinine 1.63 H Glucose 188 H Calcium 8.7 Cardiac Enzymes 09/23/18 Range/Units 12:08 Troponin I 0.06 H* (< 0.04) ng/mL - Impressions Impressions Echocardiogram 09/23/18 06:38 Impressions: LVEF 60%. Left ventricular diastolic dysfunction with tissue doppler evidence of elevated filling pressures. Normal LV chamber size, wall thickness and systolic function. Normal right ventricular structure and function. No evidence of pulmonary hypertension. No significant valvular dysfunction. Left Ventricular Wall Motion: Rest Echo Findings All wall segments showed normal motion. Findings: Study Quality * Technically adequate exam. ECG Findings * Normal sinus rhythm. Left Ventricle * LVEF 60%. * Left ventricular diastolic dysfunction with tissue doppler evidence of elevated filling pressures. * Normal LV chamber size, wall thickness and systolic function. Right Ventricle * Normal right ventricular structure and function. Left Atrium * Normal left atrial size. Right Atrium * Normal right atrial size. Aortic Valve * Trileaflet aortic valve. * Moderately sclerotic aortic valve leaflets. * No aortic regurgitation. * No aortic stenosis. Mitral Valve * Mildly thickened mitral valve leaflets. * No mitral regurgitation. * No mitral stenosis. Tricuspid Valve * Trace tricuspid regurgitation. * No tricuspid stenosis. * Normal tricuspid valve structure. * No evidence of pulmonary hypertension. Pulmonic Valve * Pulmonic valve is not well visualized. Aorta * Normally sized aortic root. Pericardium * There is a trivial pericardial effusion present. * There is no echocardiographic evidence of tamponade. IVC * Normal IVC dimensions and inspiratory collapse. Pulmonary Artery * Normal visualized portions of the main pulmonary artery. Consult Discharge Plan - Plan Referrals: Castro Edouard DO [Primary Care Provider] - 10/03/18 10:15 am (Appointment will be with Dr. Olvera) (1) Urinary tract infection Qualifiers: Urinary tract infection type: acute cystitis Hematuria presence: without hematuria Qualified Code(s): N30.00 - Acute cystitis without hematuria (2) DM type 2 (diabetes mellitus, type 2) Qualifiers: Diabetes mellitus community relations liaison insulin use: with community relations liaison use Diabetes mellitus complication status: with hyperglycemia Qualified Code(s): E11.65 - Type 2 diabetes mellitus with hyperglycemia; Z79.4 - long-term (current) use of insulin (9) Hypertension Qualifiers: Hypertension type: essential hypertension Qualified Code(s): I10 - Essential (primary) hypertension
--- NOTE | 2018-09-24 13:17 | Nephrology Consult Note ---
Date of Encounter: 09/24/18 Time of Encounter: 13:16 Assessment and Plan (1) Acute kidney injury Current Visit: Yes Status: Acute Unsure if this is her baseline or indeed an acute kidney injury. Request made for staff nurse to attempt to get records from PCP for 2018. Retroperitoneal ultrasound ordered. Serum and urine studies ordered. Strict I&O. Avoid nephrotoxins and renal dose all medications. (2) CHF (congestive heart failure) Current Visit: Yes Status: Acute Strict I&O. 1.5 L fluid restriction. Qualifiers: Qualified Code(s): I50.9 - Heart failure, unspecified (3) Urinary tract infection Current Visit: Yes Status: Acute Per primary. Qualifiers: Qualified Code(s): N30.00 - Acute cystitis without hematuria (4) DM type 2 (diabetes mellitus, type 2) Current Visit: Yes Status: Chronic Per primary. Qualifiers: Qualified Code(s): E11.65 - Type 2 diabetes mellitus with hyperglycemia; Z79.4 - USP (current) use of insulin History of Present Illness - Reason for Consult Consult date: 09/24/18 Acute Kidney Injury, Chronic Kidney Disease Requesting physician: Cindy Connor - Chief Complaint EFRAIN vs CKD - History of Present Illness Ms. Buck is a 68 -year-old female who presented to the [facility] on 09/20/18 and was admitted for hyperglycemia and hypertension. She was then transferred here for further care. She was found to have a UTI, cultures presumptive for MRSA. She did develop what looks like some pulmonary edema which was treated with BiPAP IV Lasix and heparin drip. PMH:diabetes, GERD, hyperlipidemia, hypertension. Per EMR, in 2017 her GFR was greater than 60 there are no labs for 2018 and initial GFR for this hospitalization was 31. Patient has never been told she has any kidney issues or been on dialysis. Denies any family history of chronic kidney disease or hemodialysis. Denies any chronic use of NSAIDs at home. She lives at home alone. She denies any tobacco, EtOH, or illicit drug use. Past Med Surg Social Fam HX - Past Medical History Medical history: diabetes, GERD, hyperlipidemia, hypertension Additional medical history: H.pylori, gastritits, dyspepsia, leg cramps, depression Psychiatric history: anxiety, depression, prior suicide attempt, previous psychiatric hospitalization - Past Surgical History Surgical History: cholecystectomy, hysterectomy Additional surgical history: Colonoscopy 2012 - Social History Smoking Status: Never smoker Smokeless Tobacco Status: No Alcohol use: none Drug use: none Medications and Allergies Insulin Glargine,Hum.rec.anlog [Lantus Solostar] 20 unit SQ HS 11/28/14 [History] Lisinopril [Zestril] 20 mg PO DAILY #0 11/28/14 [History] Ferrous Sulfate [Iron] 325 mg PO DAILY 06/26/16 [History] Gabapentin [Neurontin] 300 mg PO TID 06/26/16 [History] Gemfibrozil [Lopid] 600 mg PO BID 06/26/16 [History] Paroxetine HCl [Paxil] 40 mg PO DAILY 06/26/16 [History] Atenolol 100 mg PO DAILY 05/22/18 [History] Cholecalciferol (Vitamin D3) [Vitamin D] 5,000 unit PO DAILY 05/22/18 [History] glyBURIDE [GlyBURIDE] 5 mg PO DAILY 05/22/18 [History] risperiDONE [RisperDAL] 4 mg PO HS 05/22/18 [History] Meclizine [Antivert] 25 mg PO DAILY PRN 09/20/18 [History] Meloxicam [Mobic] 15 mg PO DAILY 09/20/18 [History] Omeprazole [PriLOSEC] 20 mg PO DAILY 09/20/18 [History] Aspirin Enteric Coated [Aspirin EC] 81 mg PO DAILY 09/23/18 [History] Sucralfate [Carafate] 1 gm PO QIDAC 09/23/18 [History] Trazodone HCl 100 mg PO HS 09/23/18 [History] Allergy/AdvReac Type Severity Reaction Status Date / Time iodine Allergy Hives Verified 12/26/16 16:16 Review of Systems All Systems review (narrative): The remainder of the systems are negative. Constitutional: no chills, no fatigue, no fever(s) Cardiovascular: no chest pain, no dyspnea, no dyspnea on exertion, no edema Gastrointestinal: no diarrhea, no nausea, no vomiting Genitourinary Female: no hematuria, no urinary frequency, no urinary hesitancy, no urinary urgency Exam - Vital Signs Vital signs: Initial Vital Signs Temp Pulse Resp BP Pulse Ox 98.0 F 77 20 170/91 95 09/23/18 00:43 09/23/18 00:43 09/23/18 00:43 09/23/18 00:43 09/23/18 00:43 Vital Signs - Last 8 Hours Temp Pulse Resp BP Pulse Ox 09/24/18 11:34 99.7 F H 75 18 179/83 95 09/24/18 11:00 75 09/24/18 09:25 77 09/24/18 07:20 99.2 F 76 18 151/76 91 Intake and Output 09/23/18 09/24/18 09/24/18 23:59 07:59 15:59 Intake Total 360 / 800 0 / 0 Output Total 1100 / 4550 500 / 1200 700 / 1200 Balance -740 / -3750 -500 / -1200 -700 / -1200 Intake: Oral 360 / 600 0 / 0 Output: Urine 1100 / 1100 500 / 1200 700 / 1200 Other: Meal Dinner Breakfast Percent of Meal Consumed 100% 0% # Voids 1 Blood Glucose* 167 118 96 - General Appearance General appearance: well-developed, well-nourished EENT: ATNC, hearing intact, vision intact Neck: supple Respiratory: clear Cardiology: no edema, normal S1, normal S2 Gastrointestinal: normoactive bowel sounds, no tenderness, no guarding Integumentary: no rash, warm and dry Neurologic: alert and oriented x3 Musculoskeletal: no deformities, no erythema Psychiatric: mood/affect appropriate, cooperative Results - Lab Results 09/24/18 01:57 09/24/18 13:33 Most recent lab results 09/24/18 01:57 Calcium 8.7 Consult Discharge Plan - Plan Referrals: Castro Edouard DO [Primary Care Provider] - 10/03/18 10:15 am (Appointment will be with Dr. Olvera)
[2018-09-24 20:50] LABS: Bilirubin,Urine Negative (Negative); Blood,Urine Trace (Negative); Clarity,Urine Clear (Clear); Color,Urine Yellow (Yellow); Glucose,Urine (UA) 100 mg/dL (Normal); Ketones,Urine Negative (Negative); Leukocyte Esterase,Urine Small (Negative); Nitrite,Urine Negative (Negative); PH,Urine 6.5 pH Units (5.0-8.0); Protein,Urine >=300 mg/dL (Neg-Trace); Urobilinogen,Urine Normal (Normal)
[2018-09-24 20:52] LABS: Hyaline Casts,Urine None Seen per lpf (None-Few)
[2018-09-24] MEDS: traZODone 50 MG TABLET PO SCH (21:00)
[2018-09-24] MEDS: risperiDONE 1 MG TABLET PO SCH (21:00)
[2018-09-24] MEDS: Gabapentin 300 MG CAPSULE PO SCH (21:00)
[2018-09-24] MEDS: Insulin DETEMIR 100 UNIT/ML X5UNITS SQ SCH (21:00)
[2018-09-24 21:03] LABS: Squamous Epithelial Cell,Urine Few per lpf (None-Few)
[2018-09-24 21:04] LABS: Bacteria,Urine Few per hpf (None-Few); RBC,Urine 0-3 per hpf (0-3); WBC,Urine 0-3 per hpf (0-3)
[2018-09-24 21:25] LABS: Protein/Creatinine Ratio,Urine 8.74 mg/mg (0.00-0.20); Sodium, Urine 45.1 mEq/L
--- NOTE | 2018-09-25 00:10 | Electrocardiograph Report ---
[facility] [employer] [employer] Test Date: 2018-09-23 Pat Name: Alicia Buck Department: 110 Room: 2N14 Gender: F Camp Recreation Specialist: : [id number] Requested By: Karsten Martin Order Number: [id number] Reading MD: Juan Ward Measurements Intervals [place] Rate: 66 P: 70 TX: 176 QRS: 60 QRSD: 87 T: 83 QT: 443 QTc: 456 Interpretive Statements SINUS RHYTHM Electronically Signed On 09-25-2018 0:08:36 EDT by Juan Ward
[2018-09-25 05:45] LABS: Rheumatoid Factor 11 IU/mL (Less than 14)
[2018-09-25 05:46] LABS: Uric Acid 8.9 mg/dL (2.3-7.6)
[2018-09-25] MEDS: *HR* Heparin 5,000 UNIT/ML VIAL SQ SCH ×3 (05:47→21:10)
[2018-09-25 05:52] LABS: Complement C3 153 mg/dL (87-200)
[2018-09-25 07:13] LABS: Vitamin D 25 Hydroxy 8 ng/mL (30-80)
[2018-09-25 09:35] LABS: Basophils % 0.6 %; Eosinophils # 0.5 K/mcL (0.0-0.6); Eosinophils % 8.8 %; Hematocrit 32.1 % (35.3-44.9); Hemoglobin 10.2 g/dL (11.5-15.4); Lymphocytes # 1.5 K/mcL (0.6-4.6); Mean Corpuscular HGB Conc 31.8 g/dL (31.6-35.5); Mean Corpuscular Hemoglobin 27.2 pg (28.0-33.3); Mean Corpuscular Volume 85.6 fL (83.0-100.0); Mean Platelet Volume 11.3 fL (9.4-12.4); Monocytes # 0.4 K/mcL (0.0-1.3); Monocytes % 7.8 %; Neutrophils # 2.6 K/mcL (1.6-8.9); Platelet Count 220 K/mcL (140-400); Red Blood Count 3.75 M/mcL (3.82-4.97); Red Cell Distribution Width 13.1 % (11.5-14.5); Segmented Neutrophils % 51.8 %
--- NOTE | 2018-09-25 09:39 | Event Note ---
Date of Encounter: 09/25/18 Time of Encounter: 09:38 - Cardiology Event Note Discussed with nuclear medicine. Plan for nuclear stress test tomorrow, 09/26 given VQ scan on 09/23. NPO after midnight tonight. Will continue to follow.
[2018-09-25 09:45] LABS: White Blood Count 5.1 K/mcL (4.3-11.1)
[2018-09-25 09:45] LABS: Calcium 8.6 mg/dL (8.6-10.3); Potassium 4.1 mEq/L (3.5-5.1)
[2018-09-25] MEDS: Insulin LISPRO 300 UNITS/3 ML VIAL SQ SCH ×4 (10:50→21:00)
[2018-09-25] MEDS: Gabapentin 300 MG CAPSULE PO SCH ×2 (10:50→21:10)
[2018-09-25] MEDS: Sulfamethoxazole/Trimeth SS 1 TAB PO SCH ×2 (10:51→21:10)
[2018-09-25] MEDS: Aspirin Enteric Coated 81 MG Tablet PO SCH (10:51)
[2018-09-25] MEDS: Sucralfate 1 GM TABLET PO SCH ×4 (10:51→21:10)
[2018-09-25] MEDS: Cholecalciferol (D-3) 1,000 UNIT (25MCG) TABLET PO SCH (10:51)
[2018-09-25] MEDS ORDERED: Ergocalciferol (VIT D2) 50,000 UNIT (1.25MG) CAP PO SCH (13:00)
--- NOTE | 2018-09-25 13:51 | Nephrology Progress Note ---
Date of Encounter: 09/25/18 Time of Encounter: 13:40 - Assessment and Plan (1) Acute kidney injury Current Visit: Yes Status: Acute Unsure if this is her baseline or indeed an acute kidney injury. GFR was 56 in 2018. GFR is 34 today, fairly stable. Retroperitoneal ultrasound completed. Serum and urine studies completed. Strict I&O. Avoid nephrotoxins and renal dose all medications. Would suggest f/u with Dr. Hood in office however patient does not have transportation, suggest social service consult to assist. (2) CHF (congestive heart failure) Current Visit: Yes Status: Acute Strict I&O. 1.5 L fluid restriction. Qualifiers: Heart failure type: unspecified Heart failure chronicity: acute Qualified Code(s): I50.9 - Heart failure, unspecified (3) Urinary tract infection Current Visit: Yes Status: Acute Per primary. Qualifiers: Urinary tract infection type: acute cystitis Hematuria presence: without hematuria Qualified Code(s): N30.00 - Acute cystitis without hematuria (4) DM type 2 (diabetes mellitus, type 2) Current Visit: Yes Status: Chronic Per primary. 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 Denies nausea, vomiting,diarrhea. Denies chest pain or shortness of breath. Objective - Vital Signs Vital signs: Vital Signs Temp Pulse Resp BP Pulse Ox 09/25/18 11:05 98.1 F 73 16 187/86 94 09/25/18 10:57 98.1 F 73 16 187/86 94 09/25/18 08:35 97.7 F 59 14 174/81 97 09/25/18 07:24 97.7 F 59 14 182/91 97 09/25/18 05:15 16 97 09/25/18 04:30 62 09/25/18 03:25 98.4 F 60 18 163/83 97 09/24/18 23:55 71 09/24/18 23:33 98.2 F 70 18 178/84 96 09/24/18 23:30 16 96 09/24/18 20:55 74 09/24/18 19:31 98.9 F 74 20 154/73 94 09/24/18 16:56 98.3 F 75 18 147/83 94 09/24/18 15:26 77 92 09/24/18 14:05 74 136/61 93 Intake and Output 09/24/18 09/25/18 09/25/18 23:59 07:59 15:59 Intake Total 0 / 0 Output Total 600 / 1800 1200 / 1200 Balance -600 / -1560 -1200 / -1200 Intake: Oral 0 / 0 Output: Urine 600 / 1800 1200 / 1200 Other: Meal NPO Percent of Meal Consumed 0% Weight 85.5 kg Blood Glucose* 134 172 143 Patient Weight 09/25/18 23:59 Weight 85.5 kg - General Appearance General appearance: Present: well-developed, well-nourished EENT: Present: ATNC, hearing intact, vision intact Neck: Present: supple Respiratory: Present: clear Cardiology: Present: no edema, normal S1, normal S2 Gastrointestinal: Present: normoactive bowel sounds, no tenderness, no guarding Integumentary: Present: no rash, warm and dry Neurologic: Present: alert and oriented x3 Musculoskeletal: Present: no deformities, no erythema Psychiatric: Present: mood/affect appropriate, cooperative - Lab 09/25/18 09:17 09/25/18 09:16 Most recent lab results 09/25/18 09:16 Calcium 8.6 Consult Discharge Plan - Plan Referrals: Castro Edouard DO [Primary Care Provider] - 10/03/18 10:15 am (Appointment will be with Dr. Olvera)
--- NOTE | 2018-09-25 15:28 | Internal Med Progress Note ---
Hospitalist Progress Note - Encounter Date of Encounter: 09/25/18 Time of Encounter: 08:00 - Subjective Interval History: No acute events overnight. Patient notes significant improvement in her respiration overnight. She was on non invasive ventilation at time of encounter. Was not in overt distress. - Exam Vitals: Temp Pulse Resp BP Pulse Ox 98.1 F 73 16 187/86 94 09/25/18 11:05 09/25/18 11:05 09/25/18 11:05 09/25/18 11:05 09/25/18 11:05 Exam: -General: Patient is alert, oriented 3. Not in acute distress Head: Atraumatic, normal inspection, normocephalic. Eye: EOMI, PERRLA, no scleral icterus noted. ENT: Mucous membranes moist. No odontogenic infection noted. Neck: Normal inspection, no meningismus. Respiratory: On BiPAP at time of encounter. No wheezes or crackles on auscultation Cardiovascular: Regular rate and regular rhythm, S1 and S2 audible. No murmurs, rubs, or gallops. GI: Soft, nondistended, normal bowel sounds. Extremities:No joint swelling, pedal edema, or tenderness noted. Neurological: Alert, oriented 3, no focal deficits. Psychiatric: normal affect, normal mood. Skin: Dry, intact, warm. Normal color. No rashes. - Assessment and Plan (1) Acute respiratory failure with hypoxia Current Visit: Yes Status: Acute (2) Urinary tract infection Current Visit: Yes Status: Acute (3) DM type 2 (diabetes mellitus, type 2) Current Visit: Yes Status: Chronic (4) Hypertension Current Visit: Yes Status: Chronic (5) Elevated d-dimer Current Visit: Yes Status: Resolved (6) Acute kidney injury Current Visit: Yes Status: Acute (7) Hypertensive urgency Current Visit: Yes Status: Acute (8) Elevated troponin Current Visit: Yes Status: Resolved (9) DVT prophylaxis Current Visit: Yes Status: Acute (10) CHF (congestive heart failure) Current Visit: Yes Status: Acute - Summary of Assessment and Plan Summary of Assessment and Plan: 68-year-old female with history of DM, GERD, depression and depression was transferred to our facility on account of hypoxic respiratory failure. Patient was managed here for accelerated hypertension and hyperglycemia. Rapid response code was called due to respiratory distress and patient was found to be in pulmonary edema. She has currently improved after diuresis and noninvasive ventilation. NSTEMI: - Likely demand related. - Conitnue ASA, statn and BB - Cardio on board and intend to do a nuclear stress test tomorrow 09/26. - Will continue to monitor Acute Hypoxic Respiratory Failure 2/2Heart Failure with Preserved Eection Fraction - Echo showed normal ejection fraction of 60% - Abnormal diastolic function with increased filling pressures - No evidence of pulmonary hypertension or significant valvular dysfunction - We will continue to diurese patient EFRAIN: - likelt from over diuresis. - I/O -5l, lasix is on hold as the patient looks euvolemic. - ordered BMP for tomorrow, nephrology is consulted. UTI: - UCx grew MRSA - ID is consulted, patient is started on Bactrim - Patient is afebrile, hemodynamically stable. She has no leukocytosis Elevated d-dimer: - her V/Q mismatch and venous doppler are negative. - Heparin gtt stopped. HTN: - Blood pressure remains elevated with systolic in the 170s and diastolic in the 90s - Will add 10 mg of amlodipine daily -Continue coreg and hydralazine PRN. Vaginal bleed: - Was seen on her underwear while on heparin gtt. - Hg remained stable. Diet: cardiac DVT prophylaxis: SC heparin - Time Spent with Patient Total time spent is greater than 50% in coordination of care (as documented) at patient's floor/unit and/or counseling patient: Internal Medicine: Result - Labs CBC & Chem 7: 09/25/18 09:17 09/25/18 09:16 Labs: Short CBC 09/25/18 Range/Units 09:17 WBC 5.1 D (4.3-11.1) K/mcL Hgb 10.2 L (11.5-15.4) g/dL Hct 32.1 L (35.3-44.9) % Plt Count 220 (140-400) K/mcL Neutrophils # 2.6 (1.6-8.9) K/mcL BMP 09/25/18 09:16 Sodium 140 Potassium 4.1 Chloride 109 H Carbon Dioxide 25 BUN 27 H Creatinine 1.54 H Glucose 166 H Calcium 8.6 Urine 09/24/18 Range/Units 19:55 Urine Color Yellow (Yellow) Urine Clarity Clear (Clear) Urine pH 6.5 (5.0-8.0) pH Units Ur Specific [place] 1.010 (1.010-1.025) Urine Protein >=300 H (Neg-Trace) mg/dL Urine Glucose (UA) 100 H (Normal) mg/dL - Impressions Impressions Retroperitoneum Ultrasound 09/24/18 16:00 IMPRESSION: Hyperechoic right kidney which can be seen in medical renal disease. Otherwise, unremarkable ultrasound of the kidneys and bladder. D/ / 09/24/2018 17:31:14 Lorena Marcus MD / earyo Interpreting Provider: Lorena Marcus MD Consult Discharge Plan - Plan Referrals: Castro Edouard DO [Primary Care Provider] - 10/03/18 10:15 am (Appointment will be with Dr. 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
[2018-09-25] MEDS: Insulin DETEMIR 100 UNIT/ML X5UNITS SQ SCH (21:10)
[2018-09-25] MEDS: risperiDONE 1 MG TABLET PO SCH (21:10)
[2018-09-25] MEDS: traZODone 50 MG TABLET PO SCH (21:10)
[2018-09-26 02:49] LABS: Calcium 8.3 mg/dL (8.6-10.3); Potassium 3.5 mEq/L (3.5-5.1)
[2018-09-26] MEDS: *HR* Heparin 5,000 UNIT/ML VIAL SQ SCH ×3 (05:22→20:25)
[2018-09-26] MEDS ORDERED: Regadenoson 0.4 MG/5 ML SYRINGE IVP ONE (06:20)
[2018-09-26] MEDS: Gabapentin 300 MG CAPSULE PO SCH ×3 (09:00→20:31)
[2018-09-26] MEDS: Aspirin Enteric Coated 81 MG Tablet PO SCH (09:01)
[2018-09-26] MEDS: Sucralfate 1 GM TABLET PO SCH ×4 (09:01→20:25)
[2018-09-26] MEDS: Insulin LISPRO 300 UNITS/3 ML VIAL SQ SCH ×4 (09:01→20:11)
[2018-09-26] MEDS: Sulfamethoxazole/Trimeth SS 1 TAB PO SCH ×2 (09:01→20:25)
--- NOTE | 2018-09-26 09:04 | Cardiology Progress Note ---
Date of Encounter: 09/26/18 Time of Encounter: 09:01 Assessment and Plan (1) Elevated troponin Current Visit: Yes Status: Resolved Per cardiology: Troponin negative then 0.11, 0.06 in the setting of HTN, CHF, EFRAIN, UTI. Suspect demand ischemia. Denies chest pain. ECG with SR. TTE EF preserved. Initially on heparin drip stopped d/t vaginal bleeding. Continue ASA, Statin, BB. Plan was for inpt stress test. However, pt had VQ scan 09/23 and when she went for nuclear stress test this AM, nitro patch was discovered. Discussed with Dr. Rodriguez. Will coordinate outpt stress test. Does not need to stay inpt for testing. Cardiology signing off. Reconsult PRN. Will coordinate outpt follow-up and outpt stress test. (2) CHF (congestive heart failure) Current Visit: Yes Status: Acute Per cardiology: Reported sudden onset of shortness of breath, respiratory failure. CXR with CHF, interstitial edema and probable small effusions. Symptoms have improved, now on room air. Euvolemic on exam. Was diuresed with IV Lasix, net negative ~7L. Lasix stopped d/t EFRAIN. TTE LVEF 60%. Left ventricular diastolic dysfunction with tissue doppler evidence of elevated filling pressures. Normal LV chamber size, wall thickness and systolic function. Normal RV structure and function. No evidence of phtn. No significant valvular dysfunction. Recommend Strict i/os, fluid restriction, daily weights. Qualifiers: Heart failure type: diastolic Heart failure chronicity: acute Qualified Code(s): I50.31 - Acute diastolic (congestive) heart failure Discussion w patient/family: The assessment and plan as outlined above was discussed with the patient and/or family members who expressed understanding and agreement. All questions were answered. Thank you for involving us in the care of your patient. Please call with any questions. I will discuss all the above with Dr. Rodriguez and make changes as necessary. Subjective Principal diagnosis: CHF, elevated troponin Interval history: No acute complaints this AM. Objective Vital Signs Temp Pulse Resp BP Pulse Ox 09/26/18 03:58 98.1 F 64 16 152/67 96 09/26/18 03:49 13 99 09/25/18 23:59 16 99 09/25/18 23:45 97.9 F 68 16 161/71 98 09/25/18 19:22 98.1 F 70 18 149/78 95 09/25/18 16:34 97.7 F 68 18 95 09/25/18 16:00 98.1 F 73 16 187/86 94 09/25/18 11:05 98.1 F 73 16 187/86 94 09/25/18 10:57 98.1 F 73 16 187/86 94 Intake and Output 09/25/18 09/26/18 09/26/18 23:59 07:59 15:59 Intake Total 480 / 480 Output Total 0 / 1200 1000 / 1000 Balance 480 / -720 -1000 / -1000 Intake: Oral 480 / 480 Output: Urine 0 / 1200 1000 / 1000 Other: Meal Dinner Percent of Meal Consumed 100% Blood Glucose* 192 159 General: Conversant, No Apparent Distress HEENT: Atraumatic, Normocephaly, Mucus Membranes Moist Neck: No JVD, Normal carotid pulses Cardiac: Reg Rate and Rhythm, Normal S1 and S2, No Murmur Lungs: Normal Breath Sounds, No Wheeze, Rales, Rhonchi Neuro: Alert and responsive, No focal deficits noted Abdomen: Soft, Non-Tender Skin: No rashes noted on visualized skin Musculoskeletal: No Chest Wall Tenderness Extremities: No Clubbing, No Cyanosis, No Edema, Normal Pulses Results 09/25/18 09:17 09/26/18 02:00 Lab Results 09/25/18 09/25/18 09/26/18 09:16 09:17 02:00 WBC 5.1 D Hgb 10.2 L Hct 32.1 L Plt Count 220 Sodium 140 138 Potassium 4.1 3.5 Chloride 109 H 106 Carbon Dioxide 25 24 BUN 27 H 23 Creatinine 1.54 H 1.35 H Glucose 166 H 208 H Calcium 8.6 8.3 L Short CBC 09/25/18 Range/Units 09:17 WBC 5.1 D (4.3-11.1) K/mcL Hgb 10.2 L (11.5-15.4) g/dL Hct 32.1 L (35.3-44.9) % Plt Count 220 (140-400) K/mcL Neutrophils # 2.6 (1.6-8.9) K/mcL BMP 09/26/18 09/25/18 Range/Units 02:00 09:16 Sodium 138 140 (136-145) mEq/L Potassium 3.5 4.1 (3.5-5.1) mEq/L Chloride 106 109 H (98-107) mEq/L Carbon Dioxide 24 25 (23-29) mEq/L BUN 23 27 H (8-23) mg/dL Creatinine 1.35 H 1.54 H (0.60-1.20) mg/dL Glucose 208 H 166 H (70-105) mg/dL Calcium 8.3 L 8.6 (8.6-10.3) mg/dL Impressions Retroperitoneum Ultrasound 09/24/18 16:00 IMPRESSION: Hyperechoic right kidney which can be seen in medical renal disease. Otherwise, unremarkable ultrasound of the kidneys and bladder. D/ / 09/24/2018 17:31:14 Lorena Marcus MD / geri Interpreting Provider: Lorena Marcus MD Active Medications Aspirin (Aspirin Ec) 81 mg PO DAILY [facility] Stop: 03/25/19 10:50 Last Admin: 09/25/18 10:51 Dose: 81 mg Documented by: Atorvastatin Calcium (Lipitor) 40 mg PO HS [facility] Stop: 03/26/19 21:01 Last Admin: 09/25/18 21:10 Dose: 40 mg Documented by: Carvedilol (Coreg) 3.125 mg PO BIDWM [facility]; Protocol Stop: 03/25/19 17:01 Last Admin: 09/25/18 15:58 Dose: 3.125 mg Documented by: Dextrose/Water (Dextrose 50% (Syg)) 25 ml IVP AD PRN PRN Reason: Hypoglycemia Stop: 03/25/19 03:44 Ergocalciferol (Drisdol (50,000 Unit)) 50,000 unit PO We [facility] Stop: 03/27/19 13:01 Last Admin: 09/25/18 16:50 Dose: 50,000 unit Documented by: Ferrous Sulfate (Ferrous Sulfate) 325 mg PO DAILY [facility] Stop: 03/26/19 09:01 Last Admin: 09/25/18 10:50 Dose: 325 mg Documented by: Gabapentin (Neurontin) 300 mg PO TID [facility] Stop: 03/27/19 21:01 Last Admin: 09/25/18 21:10 Dose: 300 mg Documented by: Glucagon (Glucagen) 1 mg IM ONCE PRN PRN Reason: Hypoglycemia Stop: 03/25/19 03:44 Glucose (Gluctose) 15 gm PO ONCE PRN PRN Reason: Hypoglycemia Stop: 03/25/19 03:44 Glucose (Gluctose) 30 gm PO ONCE PRN PRN Reason: Hypoglycemia Stop: 03/25/19 03:44 Heparin Sodium (Porcine) (Heparin) 5,000 unit SQ Q8HCO [facility] Stop: 03/25/19 22:46 Last Admin: 09/26/18 05:22 Dose: 5,000 unit Documented by: Hydralazine HCl (Hydralazine) 10 mg IVP Q6HR PRN PRN Reason: Hypertension Stop: 03/25/19 06:41 Last Admin: 09/23/18 20:44 Dose: 10 mg Documented by: Dextrose (Dextrose 5%) 1,000 mls @ 100 mls/hr IVC .Q10H PRN PRN Reason: HYPOGLYCEMIA Stop: 03/25/19 03:44 Insulin Detemir (Levemir) 10 unit SQ [facility] Stop: 03/25/19 21:01 Last Admin: 09/25/18 21:10 Dose: 10 unit Documented by: Insulin Human Lispro (Humalog) 0 units SQ HS [facility]; Protocol Stop: 03/25/19 21:01 Last Admin: 09/25/18 21:00 Dose: Not Given Documented by: Insulin Human Lispro (Humalog) 0 units SQ TIDAC [facility]; Protocol Stop: 03/25/19 07:31 Last Admin: 09/25/18 16:50 Dose: 4 units Documented by: Naloxone HCl (Narcan) 0.4 mg IVP Q2MPRN PRN PRN Reason: SEE COMMENTS Stop: 03/25/19 03:41 Omeprazole (Prilosec) 20 mg PO DAILY [facility]; Protocol Stop: 03/26/19 09:01 Last Admin: 09/25/18 10:50 Dose: 20 mg Documented by: Paroxetine HCl (Paxil) 40 mg PO DAILY [facility] Stop: 03/26/19 09:01 Last Admin: 09/25/18 10:51 Dose: 40 mg Documented by: Risperidone (Risperdal) 4 mg PO HS [facility] Stop: 03/25/19 21:01 Last Admin: 09/25/18 21:10 Dose: 4 mg Documented by: Sucralfate (Carafate) 1 gm PO QIDAC [facility] Stop: 03/25/19 16:31 Last Admin: 09/25/18 21:10 Dose: 1 gm Documented by: Trazodone HCl (Trazodone) 100 mg PO [facility] Stop: 03/25/19 21:01 Last Admin: 09/25/18 21:10 Dose: 100 mg Documented by: Trimethoprim/Sulfamethoxazole (Bactrim Ss) 1 tab PO BID [facility] Stop: 09/26/18 23:59 Last Admin: 09/25/18 21:10 Dose: 1 tab Documented by: - Imaging and Cardiology Echo: report reviewed - EKG Interpretation EKG results cardiology: other (12 hr tele AVG HR 66, SR, no significant pauses or arrhythmias noted.) Consult Discharge Plan - Plan Referrals: Castro Edouard, DO [Primary Care Provider] - (Patient is going to [facility] no PCP appointment needed)
--- NOTE | 2018-09-26 13:30 | Nephrology Progress Note ---
Date of Encounter: 09/26/18 Time of Encounter: 13:28 - Assessment and Plan (1) Acute kidney injury Current Visit: Yes Status: Acute Unsure if this is her baseline or indeed an acute kidney injury. GFR was 56 in 2018. GFR is 39 today, fairly stable. Retroperitoneal ultrasound completed. Serum and urine studies completed. Strict I&O. Avoid nephrotoxins and renal dose all medications. Will sign off at this time, please reconsult if needed. Would suggest f/u with Dr. Hood in office however patient does not have transportation, suggest social service consult to assist. (2) CHF (congestive heart failure) Current Visit: Yes Status: Acute Strict I&O. 1.5 L fluid restriction. Qualifiers: Heart failure type: diastolic Heart failure chronicity: acute Qualified Code(s): I50.31 - Acute diastolic (congestive) heart failure (3) Urinary tract infection Current Visit: Yes Status: Acute Per primary. Qualifiers: Urinary tract infection type: acute cystitis Hematuria presence: without hematuria Qualified Code(s): N30.00 - Acute cystitis without hematuria (4) DM type 2 (diabetes mellitus, type 2) Current Visit: Yes Status: Chronic Per primary. Qualifiers: Diabetes mellitus prison insulin use: with terminal make up operator use Diabetes mellitus complication status: with hyperglycemia Qualified Code(s): E11.65 - Type 2 diabetes mellitus with hyperglycemia; Z79.4 - prison (current) use of insulin Subjective Principal diagnosis: CHF, elevated troponin Interval history: Pt seen and examined, doing well. Denies nausea, vomiting,diarrhea. Denies chest pain or shortness of breath. Objective - Vital Signs Vital signs: Vital Signs Temp Pulse Resp BP Pulse Ox 09/26/18 11:50 97.7 F 67 16 183/82 99 09/26/18 08:30 74 09/26/18 03:58 98.1 F 64 16 152/67 96 09/26/18 03:49 13 99 09/25/18 23:59 16 99 09/25/18 23:45 97.9 F 68 16 161/71 98 09/25/18 19:22 98.1 F 70 18 149/78 95 09/25/18 16:34 97.7 F 68 18 95 09/25/18 16:00 98.1 F 73 16 187/86 94 Intake and Output 09/25/18 09/26/18 09/26/18 23:59 07:59 15:59 Intake Total 480 / 480 240 / 240 Output Total 0 / 1200 1000 / 1000 Balance 480 / -720 -1000 / -760 240 / -760 Intake: Oral 480 / 480 240 / 240 Output: Urine 0 / 1200 1000 / 1000 Other: Meal Dinner Breakfast Percent of Meal Consumed 100% 100% Stool Size Small Stool Consistency formed Stool Characteristics Normal for Patient Stool Color Brown # Voids 1 Blood Glucose* 192 159 217 - General Appearance General appearance: Present: well-developed, well-nourished EENT: Present: ATNC, hearing intact, vision intact Neck: Present: supple Respiratory: Present: clear Cardiology: Present: no edema, normal S1, normal S2 Gastrointestinal: Present: normoactive bowel sounds, no tenderness, no guarding Integumentary: Present: no rash, warm and dry Neurologic: Present: no focal deficit, alert and oriented x3 Musculoskeletal: Present: no deformities, no erythema Psychiatric: Present: mood/affect appropriate, cooperative - Lab 09/25/18 09:17 09/26/18 02:00 Most recent lab results 09/26/18 02:00 Calcium 8.3 L Consult Discharge Plan - Plan Referrals: Castro Edouard DO [Primary Care Provider] - (Patient is going to [facility] no PCP appointment needed)
[2018-09-26] MEDS: Lisinopril 20 MG TABLET PO SCH (17:16)
--- NOTE | 2018-09-26 17:51 | Internal Med Progress Note ---
Hospitalist Progress Note - Encounter Date of Encounter: 09/26/18 Time of Encounter: 07:50 - Subjective Interval History: Patient seen and examined. No acute events overnight. She is currently off noninvasive ventilation and breathing normally on room air. She denies shortness of breath, chest pain, cough, fever and chills - Exam Vitals: Temp Pulse Resp BP Pulse Ox 36.6 C 65 16 189/86 95 09/26/18 17:00 09/26/18 17:00 09/26/18 17:00 09/26/18 17:00 09/26/18 17:00 Exam: General: Patient is alert, oriented 3. She sitting at bedside. Head: Atraumatic, normal inspection, normocephalic. Eye: EOMI, PERRLA, no scleral icterus noted. ENT: Mucous membranes moist. No odontogenic infection noted. Neck: Normal inspection, no meningismus. Respiratory: Currently off BiPAP. Clear lung dorado on auscultation Cardiovascular: Regular rate and regular rhythm, S1 and S2 audible. No murmurs, rubs, or gallops. GI: Soft, nondistended, normal bowel sounds. Extremities:No joint swelling, pedal edema, or tenderness noted. Neurological: Alert, oriented 3, no focal deficits. Psychiatric: normal affect, normal mood. Skin: Dry, intact, warm. Normal color. No rashes. - Assessment and Plan (1) Acute respiratory failure with hypoxia Current Visit: Yes Status: Acute (2) Urinary tract infection Current Visit: Yes Status: Acute (3) DM type 2 (diabetes mellitus, type 2) Current Visit: Yes Status: Chronic (4) Hypertension Current Visit: Yes Status: Chronic (5) Elevated d-dimer Current Visit: Yes Status: Resolved (6) Acute kidney injury Current Visit: Yes Status: Acute (7) Hypertensive urgency Current Visit: Yes Status: Acute (8) Elevated troponin Current Visit: Yes Status: Resolved (9) DVT prophylaxis Current Visit: Yes Status: Acute (10) CHF (congestive heart failure) Current Visit: Yes Status: Acute - Summary of Assessment and Plan Summary of Assessment and Plan: 68-year-old female with history of DM, GERD, depression and depression was transferred to our facility on account of hypoxic respiratory failure. Patient was managed here for accelerated hypertension and hyperglycemia. Rapid response code was called due to respiratory distress and patient was found to be in p ulmonary edema. She has currently improved after diuresis and noninvasive ventilation. NSTEMI: - Likely demand related. - Conitnue ASA, statin and BB - Nuclear stress as could not be done today due to Nitropatch found on patient. - Cardio agrees to an outpatient stress test. - Patient will be advised to follow-up Acute Hypoxic Respiratory Failure 2/2Heart Failure with Preserved Eection Frac tion - Patient currently saturating normally on room air - She has been off BiPAP since morning - We will continue to diurese and monitor EFRAIN: - Creatinine is trending down - Nephrology unsure whether patient has underlying chronic kidney disease - . We will avoid nephrotoxins and renally dose all medications UTI: - UCx grew MRSA - Patient on Bactrim HTN: Uncontrolled - Started on 10mg of amlodipine -Continue coreg and PRN hydralazine Diet: cardiac DVT prophylaxis: SC heparin - Time Spent with Patient Total time spent is greater than 50% in coordination of care (as documented) at patient's floor/unit and/or counseling patient: Internal Medicine: Result - Labs CBC & Chem 7: 09/25/18 09:17 09/26/18 02:00 Labs: BMP 09/26/18 02:00 Sodium 138 Potassium 3.5 Chloride 106 Carbon Dioxide 24 BUN 23 Creatinine 1.35 H Glucose 208 H Calcium 8.3 L Consult Discharge Plan - Plan Referrals: Castro Edouard DO [Primary Care Provider] - (Patient is going to [facility] no PCP appointment needed) (2) Urinary tract infection Qualifiers: Urinary tract infection type: acute cystitis Hematuria presence: without hematuria Qualified Code(s): N30.00 - Acute cystitis without hematuria (3) DM type 2 (diabetes mellitus, type 2) Qualifiers: Diabetes mellitus assisted insulin use: with laser technician use Diabetes mellitus complication status: with hyperglycemia Qualified Code(s): E11.65 - Type 2 diabetes mellitus with hyperglycemia; Z79.4 - consultant rn (current) use of insulin (4) Hypertension Qualifiers: Hypertension type: essential hypertension Qualified Code(s): I10 - Essential (primary) hypertension (10) CHF (congestive heart failure) Qualifiers: Heart failure type: diastolic Heart failure chronicity: acute Qualified Code(s): I50.31 - Acute diastolic (congestive) heart failure
[2018-09-26] MEDS: risperiDONE 1 MG TABLET PO SCH (20:25)
[2018-09-26] MEDS: traZODone 50 MG TABLET PO SCH (20:25)
[2018-09-26] MEDS: Insulin DETEMIR 100 UNIT/ML X5UNITS SQ SCH (20:25)
[2018-09-26] MEDS: amLODIPine 5 MG TABLET PO SCH (20:31)
[2018-09-27] MEDS: *HR* Heparin 5,000 UNIT/ML VIAL SQ SCH ×2 (05:45→12:16)
[2018-09-27] MEDS: Gabapentin 300 MG CAPSULE PO SCH ×2 (07:46→15:55)
[2018-09-27] MEDS: Sucralfate 1 GM TABLET PO SCH ×2 (07:46→12:17)
[2018-09-27] MEDS: Lisinopril 20 MG TABLET PO SCH (07:46)
[2018-09-27] MEDS: Aspirin Enteric Coated 81 MG Tablet PO SCH (07:47)
[2018-09-27] MEDS: Insulin LISPRO 300 UNITS/3 ML VIAL SQ SCH ×2 (07:49→12:17)
[2018-09-27 09:07] LABS: Alpha 2 Globulin (PEP) 1.23 g/dL (0.48-1.05)
[2018-09-27 09:53] LABS: Urine Collection Volume RANDOM mL
--- NOTE | 2018-09-27 09:58 | Internal Med Progress Note ---
Hospitalist Progress Note - Encounter Date of Encounter: 09/27/18 Time of Encounter: 09:58 - Subjective Interval History: No acute events overnight. Patient has no complaints today and states she is doing very well. She also admits that her appetite has markedly improved. She denies shortness of breath, chest pain, palpitations and dizziness - Exam Vitals: Temp Pulse Resp BP Pulse Ox 36.8 C 72 18 172/79 94 09/27/18 07:45 09/27/18 07:45 09/27/18 07:45 09/27/18 07:45 09/27/18 07:45 Exam: General: Patient is alert, oriented 3. She sitting at bedside. Head: Atraumatic, normal inspection, normocephalic. Eye: EOMI, PERRLA, no scleral icterus noted. ENT: Mucous membranes moist. Neck: Normal inspection, no meningismus. Respiratory: Saturating well on room air. Clear lung dorado on auscultation Cardiovascular: Regular rate and regular rhythm, S1 and S2 audible. No murmurs, rubs, or gallops. GI: Soft, nondistended, normal bowel sounds. Extremities:No joint swelling, pedal edema, or tenderness noted. Neurological: Alert, oriented 3, no focal deficits. Psychiatric: normal affect, normal mood. Skin: Dry, intact, warm. Normal color. No rashes. - Assessment and Plan (1) Acute respiratory failure with hypoxia Current Visit: Yes Status: Acute (2) Urinary tract infection Current Visit: Yes Status: Acute (3) DM type 2 (diabetes mellitus, type 2) Current Visit: Yes Status: Chronic (4) Hypertension Current Visit: Yes Status: Chronic (5) Elevated d-dimer Current Visit: Yes Status: Resolved (6) Acute kidney injury Current Visit: Yes Status: Acute (7) Hypertensive urgency Current Visit: Yes Status: Acute (8) Elevated troponin Current Visit: Yes Status: Resolved (9) DVT prophylaxis Current Visit: Yes Status: Acute (10) CHF (congestive heart failure) Current Visit: Yes Status: Acute - Summary of Assessment and Plan Summary of Assessment and Plan: 68-year-old female with history of DM, GERD, depression and depression was transferred to our facility on account of hypoxic respiratory failure. Patient was managed here for accelerated hypertension and hyperglycemia. Rapid response code was called due to respiratory distress and patient was found to be in pulmonary edema. She has currently improved after diuresis and noninvasive ventilation. NSTEMI ( Type 2) - Patient had a mild elevation in troponins during initial part of hospital admission - Currently stable. Denies chest pain and shortness of breath - Cardiology intend to do the stress test as outpatient Acute Hypoxic Respiratory Failure 2/2Heart Failure with Preserved Eection Fraction (resolved) - Patient currently saturating normally on room air - She has been off BiPAP since morning - We will continue to diurese and monitor - I believe patient's initial presentation was that of hypertensive emergency EFRAIN: - Creatinine is trending down - Nephrology unsure whether patient has underlying chronic kidney disease - We will avoid nephrotoxins and renally dose all medications UTI: - UCx grew MRSA - Patient on Bactrim HTN: - BP 131/66 at 11am - Continue amlodipine and carvedilol - When necessary hydralazine Diet: cardiac DVT prophylaxis: SC heparin Discharge planning - Awaiting PT?OT eval and recommendation - Time Spent with Patient Total time spent is greater than 50% in coordination of care (as documented) at patient's floor/unit and/or counseling patient: Internal Medicine: Result - Labs CBC & Chem 7: 09/25/18 09:17 09/26/18 02:00 Consult Discharge Plan - Plan Referrals: Castro Edouard DO [Primary Care Provider] - (Patient is going to [facility] no PCP appointment needed) (2) Urinary tract infection Qualifiers: Urinary tract infection type: acute cystitis Hematuria presence: without hematuria Qualified Code(s): N30.00 - Acute cystitis without hematuria (3) DM type 2 (diabetes mellitus, type 2) Qualifiers: Diabetes mellitus prison insulin use: with buttermaker continuous churn use Diabetes mellitus complication status: with hyperglycemia Qualified Code(s): E11.65 - Type 2 diabetes mellitus with hyperglycemia; Z79.4 - exterminator (current) use of insulin (4) Hypertension Qualifiers: Hypertension type: essential hypertension Qualified Code(s): I10 - Essential (primary) hypertension (10) CHF (congestive heart failure) Qualifiers: Heart failure type: diastolic Heart failure chronicity: acute Qualified Code(s): I50.31 - Acute diastolic (congestive) heart failure
[2018-09-27 11:25] VITALS: BP 131/66
[2018-09-27 13:16] LABS: ANA IgG by ELISA NONE DETECTED (None Detected)
[2018-09-27 13:29] LABS: IFE Reflexed NOT DONE
[2018-09-27 13:32] LABS: Myeloperoxidase Ab 0 AU/mL (0-19); Serine Protease-3 Antibody 2 AU/mL (0-19)
--- NOTE | 2018-09-27 14:55 | Discharge Summary ---
- NOTES TO OUTPATIENT PROVIDER Notes to Outpatient Provider: PO Amlodipine 10mg added to antihypertensives Orders not resulted at time of discharge: Pending orders 09/24/18 12:50 Occult Blood,Stool [BF] Routine Date of Encounter: 09/27/18 Time of Encounter: 14:50 - Discharge Diagnosis (1) Acute respiratory failure with hypoxia Priority: Primary Status: Acute Assessment and Plan: Chest x-ray demonstrated findings consistent with CHF with interstitial edema and probable small effusion. Patient did receive 2 L of IV fluids in the emergency department prior to being admitted at [facility]. She has had good response to the IV Lasix. Patient also had elevated d-dimer, cannot rule out pulmonary embolism as VQ scan not available at [facility]. Patient now on BiPAP, tolerating well. Echocardiogram in the morning VQ scan in the morning Continue heparin drip Continue BiPAP Strict I's and O's Daily weights (2) Urinary tract infection Priority: Secondary Status: Acute Qualifiers: Urinary tract infection type: acute cystitis Hematuria presence: without hematuria Qualified Code(s): N30.00 - Acute cystitis without hematuria (3) DM type 2 (diabetes mellitus, type 2) Priority: Secondary Status: Chronic Qualifiers: Diabetes mellitus community development aide insulin use: with community development aide use Diabetes mellitus complication status: with hyperglycemia Qualified Code(s): E11.65 - Type 2 diabetes mellitus with hyperglycemia; Z79.4 - MCFP (current) use of insulin (4) Hypertension Priority: Secondary Status: Chronic Qualifiers: Hypertension type: essential hypertension Qualified Code(s): I10 - Essential (primary) hypertension (5) Elevated d-dimer Priority: Secondary Status: Resolved (6) Acute kidney injury Priority: Secondary Status: Acute (7) Hypertensive urgency Priority: Secondary Status: Acute (8) Elevated troponin Priority: Secondary Status: Resolved (9) DVT prophylaxis Priority: Secondary Status: Acute (10) CHF (congestive heart failure) Priority: Secondary Status: Acute Qualifiers: Heart failure type: diastolic Heart failure chronicity: acute Qualified Code(s): I50.31 - Acute diastolic (congestive) heart failure Hospital course: Ms. Buck is a 68 year old female who presented with acute hypoxic respiratory failure 2/2 HFpEF. This was believed to be from hypertensive emergency. Patient was placed om NIIV and given diuretics. She has improved and will be discharged to continue outpatient care. She was also found to have a troponin leak which cardiology will investigate with a stress test as outpatient. - Time Spent with Patient Total time spent providing and/or coordinating discharge services: Time spent: Greater than 30 minutes (34) - Discharge Medications Prescriptions: New Carvedilol [Coreg] 3.125 mg PO BIDWM 30 Days #60 tablet Atorvastatin [Lipitor] 40 mg PO HS #30 tablet amLODIPine [Norvasc] 10 mg PO QPM 30 Days #30 tablet Lisinopril [Zestril] 20 mg PO DAILY tablet Continued Insulin Glargine,Hum.rec.anlog [Lantus Solostar] 20 unit SQ HS Paroxetine HCl [Paxil] 40 mg PO DAILY Gemfibrozil [Lopid] 600 mg PO BID Gabapentin [Neurontin] 300 mg PO TID Ferrous Sulfate [Iron] 325 mg PO DAILY Sucralfate [Carafate] 1 gm PO QIDAC Aspirin Enteric Coated [Aspirin EC] 81 mg PO DAILY Trazodone HCl 100 mg PO HS glyBURIDE [GlyBURIDE] 5 mg PO DAILY risperiDONE [RisperDAL] 4 mg PO HS Cholecalciferol (Vitamin D3) [Vitamin D3] 5,000 unit PO DAILY Meclizine [Antivert] 25 mg PO DAILY PRN PRN Reason: dizzy Omeprazole [PriLOSEC] 20 mg PO DAILY Discontinued Atenolol 100 mg PO DAILY Meloxicam [Mobic] 15 mg PO DAILY No Action Lisinopril [Zestril] 20 mg PO DAILY #0 Home Medications: Insulin Glargine,Hum.rec.anlog [Lantus Solostar] 20 unit SQ HS 11/28/14 [History] Lisinopril [Zestril] 20 mg PO DAILY #0 11/28/14 [History] Ferrous Sulfate [Iron] 325 mg PO DAILY 06/26/16 [History] Gabapentin [Neurontin] 300 mg PO TID 06/26/16 [History] Gemfibrozil [Lopid] 600 mg PO BID 06/26/16 [History] Paroxetine HCl [Paxil] 40 mg PO DAILY 06/26/16 [History] Cholecalciferol (Vitamin D3) [Vitamin D3] 5,000 unit PO DAILY 05/22/18 [History] glyBURIDE [GlyBURIDE] 5 mg PO DAILY 05/22/18 [History] risperiDONE [RisperDAL] 4 mg PO HS 05/22/18 [History] Meclizine [Antivert] 25 mg PO DAILY PRN 09/20/18 [History] Omeprazole [PriLOSEC] 20 mg PO DAILY 09/20/18 [History] Aspirin Enteric Coated [Aspirin EC] 81 mg PO DAILY 09/23/18 [History] Sucralfate [Carafate] 1 gm PO QIDAC 09/23/18 [History] Trazodone HCl 100 mg PO HS 09/23/18 [History] Atorvastatin [Lipitor] 40 mg PO HS #30 tablet 09/27/18 [Rx] Carvedilol [Coreg] 3.125 mg PO BIDWM 30 Days #60 tablet 09/27/18 [Rx] Lisinopril [Zestril] 20 mg PO DAILY tablet 09/27/18 [Rx] amLODIPine [Norvasc] 10 mg PO QPM 30 Days #30 tablet 09/27/18 [Rx] Allergies/Adverse Reactions: Allergy/AdvReac Type Severity Reaction Status Date / Time iodine Allergy Hives Verified 12/26/16 16:16 Date of admission: 09/23/18 04:09 Primary care physician: Castro Edouard DO Consults: 09/23/18 09:04 Consult to Cardiology [CONS] Routine Comment: Consulting Provider: Card[facility] Reason for Consult: elevated troponin Call Completed: Yes 09/23/18 09:16 Consult to Nurse Navigator [CONS] Routine Comment: CHF 09/23/18 09:56 Consult to Infectious Diseases [CONS] Routine Consulting Provider: Infectious Disease [facility] Reason for Consult: MRSA in urine. Recommendation for treatment?? Call Completed: Yes 09/24/18 11:53 Consult to Nephrology [CONS] Routine Consulting Provider: Kidney Nicole/SABINO/PUMA/BREE Reason for Consult: EFRAIN Call Completed: Yes 09/27/18 06:55 Consult to Occupational Therapy [CONS] Routine Comment: Evaluate, develop and implement POC Reason for Consult: Evaluate and help decide next level of care Does patient have active BEDREST order?: No Is patient medically & hemodynamically stable?: Yes Consult to Physical Therapy [CONS] Routine Comment: Evaluate, develop and implement POC Reason for Consult: Evaluate and help decide next level of care Does patient have active BEDREST order?: No Is patient medically & hemodynamically stable?: Yes - Constitutional Vitals: Temp Pulse Resp BP Pulse Ox 36.4 C 68 18 131/66 97 09/27/18 12:15 09/27/18 12:15 09/27/18 12:15 09/27/18 12:15 09/27/18 12:15 General appearance: Present: cooperative, A&O X 3, pleasant, no acute distress, answers questions appropriately Exam: General: Patient is alert, oriented 3. She sitting at bedside. Head: Atraumatic, normal inspection, normocephalic. Eye: EOMI, PERRLA, no scleral icterus noted. ENT: Mucous membranes moist. Neck: Normal inspection, no meningismus. Respiratory: Saturating well on room air. Clear lung dorado on auscultation Cardiovascular: Regular rate and regular rhythm, S1 and S2 audible. No murmurs, rubs, or gallops. GI: Soft, nondistended, normal bowel sounds. Extremities:No joint swelling, pedal edema, or tenderness noted. Neurological: Alert, oriented 3, no focal deficits. Psychiatric: normal affect, normal mood. Skin: Dry, intact, warm. Normal color. No rashes. - Patient Status Disposition: Home Health Service Condition: Good Functional capacity at discharge: independent ambulation Overall status at discharge: patient is back to baseline - Discharge Instructions Instructions: Heart Failure (DC), Acute Respiratory Distress Syndrome (DC), Urinary Tract Infection in Women (DC), Syncope (DC) Follow Up With: Castro Edouard DO [Primary Care Provider] - (Patient is going to [facility] no PCP appointment needed) - Diet and Activity Activity: increase activity as tolerated Diet: low salt diet
--- NOTE | 2018-09-27 15:00 | Physician Discharge Referral ---
Home Health/Hosp Referral Info Provider in Charge Post Discharge: PCP - Diagnosis (1) Acute respiratory failure with hypoxia Status: Acute (2) Urinary tract infection Status: Acute (3) DM type 2 (diabetes mellitus, type 2) Status: Chronic (4) Hypertension Status: Chronic (5) Elevated d-dimer Status: Resolved (6) Acute kidney injury Status: Acute (7) Hypertensive urgency Status: Acute (8) Elevated troponin Status: Resolved (9) DVT prophylaxis Status: Acute (10) CHF (congestive heart failure) Status: Acute - Respiratory Orders Smoking Cessation: Smoking cessation has been advised. For more information, call the [place] Tobacco Quit Line at 4-774-BSGZ-NOW. - Transfer Medications Prescriptions: Carvedilol [Coreg] 3.125 mg PO BIDWM 30 Days #60 tablet Atorvastatin [Lipitor] 40 mg PO HS #30 tablet amLODIPine [Norvasc] 10 mg PO QPM 30 Days #30 tablet Home Medications: Insulin Glargine,Hum.rec.anlog [Lantus Solostar] 20 unit SQ HS 11/28/14 [History] Lisinopril [Zestril] 20 mg PO DAILY #0 11/28/14 [History] Ferrous Sulfate [Iron] 325 mg PO DAILY 06/26/16 [History] Gabapentin [Neurontin] 300 mg PO TID 06/26/16 [History] Gemfibrozil [Lopid] 600 mg PO BID 06/26/16 [History] Paroxetine HCl [Paxil] 40 mg PO DAILY 06/26/16 [History] Cholecalciferol (Vitamin D3) [Vitamin D3] 5,000 unit PO DAILY 05/22/18 [History] glyBURIDE [GlyBURIDE] 5 mg PO DAILY 05/22/18 [History] risperiDONE [RisperDAL] 4 mg PO HS 05/22/18 [History] Meclizine [Antivert] 25 mg PO DAILY PRN 09/20/18 [History] Omeprazole [PriLOSEC] 20 mg PO DAILY 09/20/18 [History] Aspirin Enteric Coated [Aspirin EC] 81 mg PO DAILY 09/23/18 [History] Sucralfate [Carafate] 1 gm PO QIDAC 09/23/18 [History] Trazodone HCl 100 mg PO HS 09/23/18 [History] Atorvastatin [Lipitor] 40 mg PO HS #30 tablet 09/27/18 [Rx] Carvedilol [Coreg] 3.125 mg PO BIDWM 30 Days #60 tablet 09/27/18 [Rx] Lisinopril [Zestril] 20 mg PO DAILY tablet 09/27/18 [Rx] amLODIPine [Norvasc] 10 mg PO QPM 30 Days #30 tablet 09/27/18 [Rx] Allergies/Adverse Reactions: Allergy/AdvReac Type Severity Reaction Status Date / Time iodine Allergy Hives Verified 12/26/16 16:16 Certification: Further, I certify that my clinical findings support that this patient is homebound (i.e. absences from home require considerable and taxing effort and are for medical reasons or anabaptism services or infrequently or short duration when for other reasons) because: Homebound Reason: Patient requires assistance of a person or device to safely leave home Attestation: My signature below is to certify that this patient is under my care and that I, or nurse practitioner, or a physician's assisted living assistant working with me, has a [id number] encounter with this patient.
[2018-09-27] MEDS: amLODIPine 5 MG TABLET PO SCH (15:56)
== END 2018-09-27 16:38 | disposition home health service (06) | DRG 194 ==
LOC: 2NNU → SUATTDRO 09-23 04:09
PROVIDERS: ADMIT Pediatrics; ATTEND Internal Medicine